=== PATIENT | male | born 1965 | race Caucasian/White ===

== ENCOUNTER 2018-01-21 16:43 | Emergency (ER) | payer OTHER ==
[~2018-01-21] VITALS: Ht 177.8 cm; Wt 108.9 kg
[~2018-01-21 16:43] MED LIST: ALBU90OI INH; BENZ100A PO; CEPH500 PO; CODACE30 PO; DULERA 100 MCG/13 GM INH; GLIP10 PO; HYDR1TAB94 PO; LEVO750 PO; METF500 PO; Metformin HCl1000 MG PO; Nicoderm Cq1 EAC1 TOP; PRED20 PO; PROM25 PO; Prinivil10 MG PO; RISP1 PO; ROBITUSSIN COU118 M1 PO; SIMV10 PO; TAMS.4ER PO; TRAM50 PO
[2018-01-21 17:40] LABS: BASOPHILS ABSOLUTE AUTO 0.03 K/mm3 (0.00-0.23); BASOPHILS PERCENT AUTO 1 % (0-2); EOSINOPHILS ABSOLUTE AUTO 0.08 K/mm3 (0.00-0.68); EOSINOPHILS PERCENT AUTO 1 % (0-6); Hematocrit 41.6 % (37.0-53.0); Hemoglobin 13.5 g/dL (13.5-17.5); IMMATURE GRAN ABSOLUTE AUTO 0.01 K/mm3 (0.00-0.10); IMMATURE GRAN PERCENT AUTO 0 % (0-1); LYMPHOCYTES ABSOLUTE AUTO 2.05 K/mm3 (0.84-5.20); LYMPHOCYTES PERCENT AUTO 36 % (21-46); MONOCYTES ABSOLUTE AUTO 0.57 K/mm3 (0.16-1.47); MONOCYTES PERCENT AUTO 10 % (4-13); Mean Corpuscular HGB 27.9 pg (26.0-34.0); Mean Corpuscular HGB Conc 32.5 g/dL (31.5-36.5); Mean Corpuscular Volume 86 fL (80-100); Mean Platelet Volume 8.6 fL (9.1-12.4); NEUTROPHILS ABSOLUTE AUTO 2.96 K/mm3 (1.96-9.15); NEUTROPHILS PERCENT AUTO 52 % (41-73); Platelet Count 267 K/mm3 (150-400); RDW Coefficient Variation 12.9 % (11.7-14.2); RDW Standard Deviation 40.3 fL (35.1-46.3); Red Blood Cell Count 4.84 M/mm3 (4.30-5.90)
[2018-01-21 17:44] LABS: Base Excess Venous -0.3 mmol/L; Bicarbonate Venous 24.4 mmol/L (24.0-30.0); PCO2 Venous 37.2 mmHg (38-42); PO2 Venous 87.5 mmHg (38-42); pH Blood Venous 7.42 (7.34-7.37)
[2018-01-21 17:59] LABS: Alanine Aminotransfer (ALT/SGP 23 U/L (12-78); Albumin, Blood 3.8 g/dL (3.4-5.0); Albumin/Globulin Ratio 1.1 (0.8-1.8); Alk Phos 101 U/L (50-136); Anion Gap 11 mmol/L (6-16); Aspartate Aminotrans (AST/SGOT 15 U/L (12-37); Bilirubin, Total 0.3 mg/dL (0.1-1.0); Blood Urea Nitrogen 17 mg/dL (8-24); Bun/Creatinine Ratio 19.4 (12.0-20.0); CO2, Blood 23 mmol/L (21-32); Calcium, Blood 9.4 mg/dL (8.5-10.1); Chloride, Blood 104 mmol/L (98-108); Creatinine, Blood 0.88 mg/dL (0.60-1.20); Globulin, Blood 3.5 g/dL (2.2-4.0); Glomerular Filtration Rate >60 (60-); Glucose, Blood 212 mg/dL (70-99); Potassium, Blood 4.4 mmol/L (3.5-5.5); Sodium, Blood 138 mmol/L (136-145); Total Protein, Blood 7.3 g/dL (6.4-8.2); Troponin I <0.015 ng/mL (0.000-0.040)
[2018-01-21 18:03] LABS: Thyroid Stimulating Hormone 0.819 uIU/mL (0.360-4.800)
[2018-01-21] MEDS ORDERED: ALBU90OI INH (18:43)
[2018-01-21] MEDS ORDERED: DULERA 200 MCG/13 GM INH (20:16)
== END 2018-01-21 20:25 | disposition home or self-care (01) ==
LOC: ER 16:43
PROVIDERS: Emergency Medicine
DX: I50.9 Heart failure, unspecified (principal); R06.00 Dyspnea, unspecified; Z72.0 Tobacco use; J40 Bronchitis, not specified as acute or chronic; F20.9 Schizophrenia, unspecified; Z88.5 Allergy status to narcotic agent; Z79.899 Other long term (current) drug therapy; Z79.84 Long term (current) use of oral hypoglycemic drugs; E11.9 Type 2 diabetes mellitus without complications; E78.5 Hyperlipidemia, unspecified; F17.200 Nicotine dependence, unspecified, uncomplicated
CPT/HCPCS: 36415; 71046; 80053; 82803; 83690; 83880; 84443; 84484; 85025; 93005; 93010; 94644; 99284

== ENCOUNTER 2018-02-28 22:05 | Emergency (ER) | payer OTHER ==
[~2018-02-28] VITALS: Ht 177.8 cm; Wt 106.6 kg
[~2018-02-28 22:05] MED LIST changes: +DULERA 200 MCG/13 GM INH
== END 2018-02-28 23:08 | disposition home or self-care (01) ==
LOC: ER 22:05
DX: S01.81XA Laceration without foreign body of other part of head, initial encounter (principal); Z23 Encounter for immunization; E11.9 Type 2 diabetes mellitus without complications; F17.210 Nicotine dependence, cigarettes, uncomplicated; Z88.5 Allergy status to narcotic agent; Z79.899 Other long term (current) drug therapy; Z79.84 Long term (current) use of oral hypoglycemic drugs; Z79.51 Long term (current) use of inhaled steroids; E78.00 Pure hypercholesterolemia, unspecified; Z87.442 Personal history of urinary calculi; W22.8XXA Striking against or struck by other objects, initial encounter
CPT/HCPCS: 12011; 90714; 96372; 99282

== ENCOUNTER 2018-11-30 08:41 | Inpatient (IN) | payer OTHER ==
[~2018-11-30] VITALS: Ht 177.8 cm; Wt 106.6 kg
[~2018-11-30 08:41] MED LIST changes: +ATOR80 PO; +Prednisone20 MG PO; -SIMV10 PO
[2018-11-30] MEDS ORDERED: Amitriptyline100 MG (09:07)
[2018-11-30] MEDS ORDERED: INSULANPEN SC (09:07)
[2018-11-30 09:28] LABS: BASOPHILS ABSOLUTE AUTO 0.04 K/mm3 (0.00-0.23); BASOPHILS PERCENT AUTO 0 % (0-2); EOSINOPHILS ABSOLUTE AUTO 0.06 K/mm3 (0.00-0.68); EOSINOPHILS PERCENT AUTO 1 % (0-6); Hemoglobin 13.7 g/dL (13.5-17.5); IMMATURE GRAN ABSOLUTE AUTO 0.03 K/mm3 (0.00-0.10); IMMATURE GRAN PERCENT AUTO 0 % (0-1); LYMPHOCYTES ABSOLUTE AUTO 2.05 K/mm3 (0.84-5.20); LYMPHOCYTES PERCENT AUTO 19 % (21-46); MONOCYTES ABSOLUTE AUTO 0.74 K/mm3 (0.16-1.47); MONOCYTES PERCENT AUTO 7 % (4-13); Mean Corpuscular HGB 27.9 pg (26.0-34.0); Mean Corpuscular HGB Conc 32.6 g/dL (31.5-36.5); Mean Corpuscular Volume 86 fL (80-100); Mean Platelet Volume 8.5 fL (9.1-12.4); NEUTROPHILS ABSOLUTE AUTO 7.63 K/mm3 (1.96-9.15); NEUTROPHILS PERCENT AUTO 72 % (41-73); Platelet Count 275 K/mm3 (150-400); RDW Coefficient Variation 13.1 % (11.7-14.2); RDW Standard Deviation 40.9 fL (35.1-46.3); Red Blood Cell Count 4.91 M/mm3 (4.30-5.90); White Blood Cell Count 10.55 K/mm3 (4.00-11.30)
[2018-11-30 09:41] LABS: Alanine Aminotransfer (ALT/SGP 43 U/L (12-78); Albumin, Blood 3.5 g/dL (3.4-5.0); Albumin/Globulin Ratio 0.9 (0.8-1.8); Alk Phos 120 U/L (50-136); Anion Gap 8 mmol/L (6-16); Aspartate Aminotrans (AST/SGOT 300 U/L (12-37); Bilirubin, Total 0.5 mg/dL (0.1-1.0); Blood Urea Nitrogen 9 mg/dL (8-24); Bun/Creatinine Ratio 12.5 (12.0-20.0); CO2, Blood 24 mmol/L (21-32); Calcium, Blood 8.9 mg/dL (8.5-10.1); Chloride, Blood 108 mmol/L (98-108); Creatinine, Blood 0.72 mg/dL (0.60-1.20); Globulin, Blood 3.7 g/dL (2.2-4.0); Glomerular Filtration Rate >60 (60-); Glucose, Blood 151 mg/dL (70-99); Potassium, Blood 4.2 mmol/L (3.5-5.5); Sodium, Blood 140 mmol/L (136-145); Total Protein, Blood 7.2 g/dL (6.4-8.2)
[2018-11-30 11:13] LABS: International Normalized Ratio 0.93; Prothrombin Time Results 9.8 Sec (9.7-11.5)
--- NOTE | 2018-11-30 12:18 | NUR ---
Stat echocardiogram performed with Dr. Miller attending.
--- NOTE | 2018-11-30 14:00 | NUR ---
[id number] PT'S CARE COVERED BY MECHE CLEMONS, WHO SETTLED AND ORIENTED PT TO ROOM. 1430 ASSUMED CARE OF PT AT THIS TIME. PT DENIES ANY CHEST PAIN OR ANY OTHER DISCOMFORT AT THIS TIME. PT REPORTS HE IS ANXIOUS RE: NEW NV AND STENTS PLACED.
--- NOTE | 2018-11-30 16:39 | NUR ---
SHIFT SUMMARY: PT IS ALERT AND ORIENTED X3. CONTINUES TO DENY ANY CHEST PAIN OR OTHER DISCOMFORT AT THIS TIME. PT CURRENTLY SITTING UP IN BE EATING A SNACK WITH HIS S.O. AT THE BEDSIDE, WHOM WILL BE STAYING THE NIGHT. MOVES SELF IN BED. EDUCATED ON ACTIVITY RESTRICTIONS. LUNGS ARE CLEAR T/O BUT DIMINISHED IN THE LLL. 02 SATS >90% ON RA. HR REGULAR, SR/ST 90-100 RANGE. NS @100ML/HR. TR BAND IN PLACE TO RT WRIST. SITE IS STABLE, SOFT, NO BLEEDING/OOZING. STARTING TO REMOVE AIR FROM BAND. ABD SOFT/ROUND/NON-TENDER. BT'S ARE ACTIVE X4 QAUDS. PT TO START ON A CARDIAC/ADA DIET FOR DINNER. -FULL CODE STATUS -CBG'S AC/HS
--- NOTE | 2018-11-30 21:39 | NUR ---
ASSUMING CARE RECEIVED PT REPORT FROM MECHE GONZALES. PT IS ALERT AND ORIENTED AT THE TIME OF SHIFT REPORT. PT IS ADMITTED DUE TO NSTEMI AND STENT PLACEMENT. PT HAS RIGHT RADIAL ACCESS. PT HAS TRANSPARENT DRESSING AND ARM BOARD IN PLACE OVER RIGHT RADIAL ACCESS SITE. AT THE TIME OF SHIFT REPORT PT ACCESS SITE IS CDI WITH NO BRUISING SWELLING OR HEMATOMA NOTED. AT THE TIME OF INITIAL ASSESSMENT PT REPORTED INCREASING TENDERNESS TO THE RIGHT RADIAL ACCESS SITE AND SWELLING WAS NOTED. MANUAL PRESSURE WAS HELD OVER SITE FOR APPROX 20 MIN. AFTER MANUAL PRESSURE WAS HELD, SWELLING DECREASED. SOME BRUISING WAS NOTED TO THE AREA. ARM BOARD REPLACED. APPROX 15 MIN AFTER ARM BOARD WAS REPLACED SITE WAS REASSESSED WITH NO INCEREASE OF SWELLING, BRUISING, OR DRAINAGE WAS NOTED. WILL REASSESS SITE FREQUENTLY. PT WAS PLACED ON O2 PER PT REQUEST AT 2L O2 VIA NC. PT SPO2 IS MAINTAINING GREATER THAN 90%. SPO2 PROBE IS PLACED ON RIGHT INDEX FINGER. PT IS RECEIVING NS AT 100ML/HR AT THIS TIME FOR X1 BAG. PT HR IS SINUS IN THE 90-100 RANGE. PT BP IS STABLE AT THIS TIME. ASSUMED CARE OF PT AT THE TIME OF SHIFT REPORT. WILL CONTINUE TO MONITOR PT.
[2018-12-01 05:21] LABS: BASOPHILS ABSOLUTE AUTO 0.03 K/mm3 (0.00-0.23); BASOPHILS PERCENT AUTO 0 % (0-2); EOSINOPHILS ABSOLUTE AUTO 0.04 K/mm3 (0.00-0.68); EOSINOPHILS PERCENT AUTO 1 % (0-6); Hematocrit 36.6 % (37.0-53.0); Hemoglobin 11.7 g/dL (13.5-17.5); IMMATURE GRAN ABSOLUTE AUTO 0.02 K/mm3 (0.00-0.10); IMMATURE GRAN PERCENT AUTO 0 % (0-1); LYMPHOCYTES ABSOLUTE AUTO 2.12 K/mm3 (0.84-5.20); LYMPHOCYTES PERCENT AUTO 26 % (21-46); MONOCYTES ABSOLUTE AUTO 0.75 K/mm3 (0.16-1.47); MONOCYTES PERCENT AUTO 9 % (4-13); Mean Corpuscular HGB 28.3 pg (26.0-34.0); Mean Corpuscular Volume 89 fL (80-100); Mean Platelet Volume 8.7 fL (9.1-12.4); NEUTROPHILS PERCENT AUTO 63 % (41-73); Platelet Count 205 K/mm3 (150-400); RDW Coefficient Variation 13.2 % (11.7-14.2); Red Blood Cell Count 4.13 M/mm3 (4.30-5.90); White Blood Cell Count 8.06 K/mm3 (4.00-11.30)
--- NOTE | 2018-12-01 05:41 | NUR ---
SHIFT SUMMARY NOTE PT HAS REMAINED ALERT AND ORIENTED THROUGH THE NIGHT WHILE AWAKE. PT HAS SLEPT OFF AND ON THROUGH THE NIGHT. ARM BOARD REMAINS IN PLACE OVER RIGHT RADIAL SITE. TRANSPARENT DRESSING REMAINS CDI AT THIS TIME. NO FURTHER SWELLING OR BRUISING NOTED AFTER MANUAL PRESSURE WAS HELD AT THE START OF THE SHIFT. PT HAS BEEN INSTRUCTED TO KEEP RIGHT WRIST IMMOBILE. PT HAS DENIED CHEST PAIN OR PRESSURE THROUGH THE NIGHT. SPO2 PROBE REMAINS ON RIGHT INDEX FINGER. PT IS SALINE LOCKED AT THIS TIME AFTER COMPLETION OF INFUSION OF 1 BAG NS. PT HR HAS MAINTAINED IN THE 90-100'S OVERNIGHT. PT BP HAS MAINTAINED IN THE 90-100'S SYSTOLIC. PT HAS REMAINED AT BEDSIDE THROUGHOUT THE NIGHT. PT HAS BEEN ABLE TO VOID USING URINAL WITHOUT DIFFICULTY. AM EKG PERFORMED PER ORDERS. WILL REPORT OFF TO ONCOMING DAY SHIFT NURSE.
[2018-12-01 05:43] LABS: Alanine Aminotransfer (ALT/SGP 29 U/L (12-78); Albumin/Globulin Ratio 0.9 (0.8-1.8); Alk Phos 101 U/L (50-136); Anion Gap 6 mmol/L (6-16); Aspartate Aminotrans (AST/SGOT 117 U/L (12-37); Bilirubin, Total 0.6 mg/dL (0.1-1.0); Blood Urea Nitrogen 11 mg/dL (8-24); Bun/Creatinine Ratio 15.4 (12.0-20.0); CO2, Blood 25 mmol/L (21-32); Calcium, Blood 8.3 mg/dL (8.5-10.1); Chloride, Blood 107 mmol/L (98-108); Creatinine, Blood 0.72 mg/dL (0.60-1.20); Globulin, Blood 3.2 g/dL (2.2-4.0); Glomerular Filtration Rate >60 (60-); Glucose, Blood 149 mg/dL (70-99); Potassium, Blood 4.3 mmol/L (3.5-5.5); Sodium, Blood 138 mmol/L (136-145); Total Protein, Blood 6.2 g/dL (6.4-8.2)
--- NOTE | 2018-12-01 07:38 | NUR ---
ASSUMED CARE OF PT. PT IS ALERT AND ORIENTED. DENIES CHEST PAIN AT THIS TIME AND NO NUMBNESS. R WRIST ACCESS SITE STABLE SOME BRUISING NOTED BUT NO BLEEDING THERE IS HEMATOMA NOTED BUT STABLE WELL. ARM BOARD TO R WRIST IN PLACE. PT IS ON 2LPM OF O2. HE STATED HE IS HAVING SOME SHORTNESS OF BREATH.
--- NOTE | 2018-12-01 08:15 | NUR ---
DR. HOLLINS CAME BY TO SEE PT. UPDATED HIM OF PT'S STATUS. INFORMED HIM OF PT'S WHEEZING. LASIX ONE TIME DOSE WAS ORDERED.
--- NOTE | 2018-12-01 09:27 | NUR ---
Pt was sitting at the side of the bed. Pt just stood up to use the urinal. Pt stated his breathing has improved after receiving a dose of lasix. No wheezing noted at this time. Pt is slightly restless at this time. Pt denies taking alcohol.
[2018-12-01] MEDS ORDERED: ZIPR80 PO (10:54)
[2018-12-01] MEDS ORDERED: Xalatan2.5 ML BOTHEYES (10:54)
[2018-12-01] MEDS ORDERED: TIMO.5OPSO BOTHEYES (10:55)
--- NOTE | 2018-12-01 13:47 | NUR ---
PT AMBULATED THROUGH THE ICU HALLWAYS. PT DENIES ANY CHEST PAIN OR SHORTNESS OF BREATH. SLIGHT WHEEZING WAS NOTED BEFORE AMBULATION. HE DENIED SHORTNESS OF BREATH THEN. O2 SATURATION ON ROOM AIR @ 94-95%. DR. HERRERA WAS NOTIFIED REGARDING THE WHEEZING. ORDERS RECEIVED.
--- NOTE | 2018-12-01 16:46 | NUR ---
REPORT GIVEN TO [employer] FIRST LINE PRODUCTION SUPERVISOR. PT WILL BE TRANSFERED TO ROOM PCU 15.
--- NOTE | 2018-12-01 17:19 | NUR ---
PT WAS TRANSFERED TO [facility] 15 @ 1457.
--- NOTE | 2018-12-01 17:51 | NUR ---
RECEIVED REPORT FROM MECHE COTTRELL, AND ASSUMED CARE OF PATIENT. HE IS SITTING UP IN BED, AT BEDSIDE. PT HAS FLAT BUT PLEASANT AFFECT. VSS, NO O2 NEEDED AT THIS TIME, O2 SAT >92%. RADIAL ACCESS SITE IS STABLE AT THIS TIME. ARM BOARD IN PLACE. WILL CONTINUE TO MONITOR AND GIVE REPORT TO WAYLON MCGREGOR.
--- NOTE | 2018-12-01 18:27 | NUR ---
PT RESTING AT THIS TIME, HE IS COMFORTABLE AND RELAXING WATCHING BASKETBALL. PT REFUSED TO USE THE SCD'S AT THIS TIME AND STATED,"I'M MOVING AROUND IN HERE." NO OXYGEN REQUIREMENTS, VSS. WILL CONTINUE TO MONITOR AND GIVE REPORT TO WAYLON RN.
--- NOTE | 2018-12-02 02:27 | NUR ---
ASSUMED CARE AT 1900/ SLEEPING SOUNDLY AND FAMILY AT BEDSIDE . WHEN AROUSED VERY FLAT AFFECT. VERY AWARE OF MEDS FROM HOME AND USE OF EACH. REVIEWED NEW MEDS AND AFFECTS. EXPRESSED UNDERSTANDING WITH S.O.RT WRIST NO HEMATOMA AND BRUISING AND SORENESS SAME PER REPORT FROM LAST SHIFT. INDEPENDENT IN ROOM. HS SNACK AND NO COVERAGE FOR 269 BS. DENIES PAIN OR SOB . SR/ST.HIGHEST 110.
--- NOTE | 2018-12-02 06:11 | NUR ---
SHIFT SUMMARY.NO CANGE IN ABOVE REVIEW. SLEEPS WELL ALL NOC. LOWER BP WNL MAP..ASYMPTOMATIC.WHEN OOB..SR WHEN ASLEEP/ CATH SITE SAME.WNL ARM BOARD ON AT ALL TIMES AND INSTRUCTED TYPE OF MOBILITY
[2018-12-02] MEDS ORDERED: Aspirin EC81 MG PO (13:51)
[2018-12-02] MEDS ORDERED: CLOP75 PO (13:52)
[2018-12-02] MEDS ORDERED: EPLE25 PO (13:56)
[2018-12-02] MEDS ORDERED: METO50ER PO (14:04)
--- NOTE | 2018-12-02 15:30 | NUR ---
PT HAD A GOOD MORNING AND EARLY AFTERNOON. PT STATES HE FEELS GREAT THIS MORNING. HELD A COUPLE OF MEDS, SEE MAR FOR MORE DETAIL. WENT OVER MEDICATION ORDERS FOR PATIENT ON DISCHARGE AND WENT OVER CONTRACT TO TAKE THINNERS, AND HIS INSTRUCTIONS FOR RADIAL RECOVERY SITE. PROVIDED EDUCATION ON NEW MEDICATIONS AND PROVIDED AN ADDITIONAL ARMBAND TO REMIND PATIENT TO KEEP ARM IMMOBILE DURING RECOVERY TIME. PT AND EXPRESSED UNDERSTANDING OF DISCHARGE AND MEDICATION INSTRUCTIONS WELL FOLLOW UP APPOINTMENTS.
== END 2018-12-02 14:40 | disposition home or self-care (01) | DRG 247 ==
LOC: ER 08:41 → ICUE 10:43 → ICUW 10:43 → PCU 10:43 → ICUE 14:00 → PCU 12-01 17:10
PROVIDERS: Emergency Medicine; Pharmacist; ADMIT Internal Medicine
PROC: 027136Z Dilation of Coronary Artery, Two Arteries with Three Drug-eluting Intraluminal Devices, Percutaneous Approach (ICD-10-PCS; principal; 2018-11-30)
PROC: B2111ZZ Fluoroscopy of Multiple Coronary Arteries using Low Osmolar Contrast (ICD-10-PCS; 2018-11-30)
DX: I21.4 Non-ST elevation (NSTEMI) myocardial infarction (principal); E78.00 Pure hypercholesterolemia, unspecified; F20.9 Schizophrenia, unspecified; F17.210 Nicotine dependence, cigarettes, uncomplicated; Z79.4 Long term (current) use of insulin; E78.5 Hyperlipidemia, unspecified; I25.10 Atherosclerotic heart disease of native coronary artery without angina pectoris; E11.42 Type 2 diabetes mellitus with diabetic polyneuropathy; E87.70 Fluid overload, unspecified; J44.9 Chronic obstructive pulmonary disease, unspecified
CPT/HCPCS: 36415; 71046; 80053; 82947; 83690; 83880; 84484; 85025; 85347; 85610; 85730; 93005; 93010; 93306; 93454; 94640; 96361; 96374; 96375; 99152; 99153; 99285-25; C1725; C1769; C1874; C1887; C1894; C9600; C9601; J1170; J1644; J1940; J2250; J2405; J3010; J7030; Q9967

== ENCOUNTER 2019-10-12 22:39 | Emergency (ER) | payer OTHER ==
[~2019-10-12] VITALS: Ht 177.8 cm; Wt 104.3 kg
[~2019-10-12 22:39] MED LIST changes: +Amitriptyline100 MG; +Aspirin EC81 MG PO; +CLOP75 PO; +EPLE25 PO; +INSULANPEN SC; +METO50ER PO; +TIMO.5OPSO BOTHEYES; +Xalatan2.5 ML BOTHEYES; +ZIPR80 PO
== END 2019-10-12 23:35 | disposition home or self-care (01) ==
LOC: ER 22:39
DX: S01.512A Laceration without foreign body of oral cavity, initial encounter (principal); E11.9 Type 2 diabetes mellitus without complications; E78.00 Pure hypercholesterolemia, unspecified; F17.200 Nicotine dependence, unspecified, uncomplicated; Z79.4 Long term (current) use of insulin; Z79.899 Other long term (current) drug therapy; Z88.5 Allergy status to narcotic agent; Z79.82 Long term (current) use of aspirin; W50.3XXA Accidental bite by another person, initial encounter
CPT/HCPCS: 99282

== ENCOUNTER → 2020-01-26 | Outpatient (CLI) | payer OTHER | END | disposition home or self-care (01) | LOC: LAB 16:19 → LAB SHORT 16:19 | DX: L73.9 Follicular disorder, unspecified (principal) | CPT/HCPCS: 87070; 87077; 87147; 87186; 87205 ==

== ENCOUNTER 2020-07-08 21:54 | Emergency (ER) | payer OTHER ==
[~2020-07-08] VITALS: Ht 170.2 cm; Wt 106.6 kg
[~2020-07-08 21:54] MED LIST changes: -ATOR80 PO; -Amitriptyline100 MG; -CLOP75 PO; -Metformin HCl1000 MG PO; -Prinivil10 MG PO; -TIMO.5OPSO BOTHEYES; -Xalatan2.5 ML BOTHEYES
[2020-07-08 22:28] LABS: BASOPHILS ABSOLUTE AUTO 0.02 K/mm3 (0.00-0.23); BASOPHILS PERCENT AUTO 0 % (0-2); EOSINOPHILS ABSOLUTE AUTO 0.09 K/mm3 (0.00-0.68); EOSINOPHILS PERCENT AUTO 2 % (0-6); Hematocrit 35.3 % (37.0-53.0); Hemoglobin 11.5 g/dL (13.5-17.5); IMMATURE GRAN ABSOLUTE AUTO 0.02 K/mm3 (0.00-0.10); IMMATURE GRAN PERCENT AUTO 0 % (0-1); LYMPHOCYTES ABSOLUTE AUTO 2.02 K/mm3 (0.84-5.20); LYMPHOCYTES PERCENT AUTO 39 % (21-46); MONOCYTES ABSOLUTE AUTO 0.44 K/mm3 (0.16-1.47); MONOCYTES PERCENT AUTO 9 % (4-13); Mean Corpuscular HGB 27.5 pg (26.0-34.0); Mean Corpuscular HGB Conc 32.6 g/dL (31.5-36.5); Mean Corpuscular Volume 84 fL (80-100); NEUTROPHILS ABSOLUTE AUTO 2.57 K/mm3 (1.96-9.15); NEUTROPHILS PERCENT AUTO 50 % (41-73); Platelet Count 273 K/mm3 (150-400); RDW Coefficient Variation 12.9 % (11.7-14.2); Red Blood Cell Count 4.18 M/mm3 (4.30-5.90); White Blood Cell Count 5.16 K/mm3 (4.00-11.30)
[2020-07-08 22:34] LABS: Source, Urine Clean Catch
[2020-07-08 22:39] LABS: Bilirubin, Urine Neg (Neg); Blood, Urine Neg (Neg); Glucose Qualitative, Urine 4+ (Neg); Ketones, Urine 1+ (Neg); Leukocyte Esterase, Urine Neg (Neg); Nitrite, Urine Neg (Neg); Protein, Urine 1+ (Neg); Specific Gravity, Urine 1.015 (1.003-1.022); Urobilinogen, Urine NORM (Normal)
[2020-07-08 22:40] LABS: Appearance, Urine Clear (Clear); Color, Urine Yellow (P-Yellow)
[2020-07-08 22:49] LABS: Alanine Aminotransfer (ALT/SGP 77 U/L (12-78); Albumin, Blood 3.4 g/dL (3.4-5.0); Albumin/Globulin Ratio 0.9 (0.8-1.8); Alk Phos 190 U/L (50-136); Anion Gap 6 mmol/L (6-16); Aspartate Aminotrans (AST/SGOT 35 U/L (12-37); Bilirubin, Total 0.2 mg/dL (0.1-1.0); Blood Urea Nitrogen 13 mg/dL (8-24); Bun/Creatinine Ratio 14.9 (12.0-20.0); CO2, Blood 28 mmol/L (21-32); Calcium, Blood 8.9 mg/dL (8.5-10.1); Chloride, Blood 111 mmol/L (98-108); Creatinine, Blood 0.87 mg/dL (0.60-1.20); Globulin, Blood 3.8 g/dL (2.2-4.0); Glomerular Filtration Rate >60 (60-); Glucose, Blood 210 mg/dL (70-99); Potassium, Blood 4.2 mmol/L (3.5-5.5); Sodium, Blood 145 mmol/L (136-145); Total Protein, Blood 7.2 g/dL (6.4-8.2); Troponin I <0.015 ng/mL (0.000-0.040)
[2020-07-09] MEDS ORDERED: Zithromax250 MG PO (00:09)
[2020-07-11] MEDS ORDERED: BASAGLAR K100 UNIT/6 SC (17:57)
[2020-07-11] MEDS ORDERED: Amitriptyline100 MG PO (17:57)
[2020-07-11] MEDS ORDERED: ATOR80 PO (17:58)
[2020-07-11] MEDS ORDERED: CLOP75 PO (17:58)
[2020-07-11] MEDS ORDERED: GLUCOPHAGE1000 M1 PO (17:59)
[2020-07-11] MEDS ORDERED: Prinivil10 MG PO (17:59)
[2020-07-11] MEDS ORDERED: TIMO.5OPSO BOTHEYES (18:00)
[2020-07-11] MEDS ORDERED: Xalatan2.5 ML BOTHEYES (18:00)
[2020-07-12] MEDS ORDERED: METO25 PO (16:40)
[2020-07-12] MEDS ORDERED: FURO20 PO (16:41)
== END 2020-07-09 00:22 | disposition home or self-care (01) ==
LOC: ER 21:54
PROVIDERS: Physician Assistant
DX: R06.02 Shortness of breath (principal); E11.9 Type 2 diabetes mellitus without complications; E78.00 Pure hypercholesterolemia, unspecified; I25.2 Old myocardial infarction; F17.200 Nicotine dependence, unspecified, uncomplicated; Z86.19 Personal history of other infectious and parasitic diseases; Z79.899 Other long term (current) drug therapy; Z79.02 Long term (current) use of antithrombotics/antiplatelets; Z79.82 Long term (current) use of aspirin; Z88.5 Allergy status to narcotic agent; Z79.4 Long term (current) use of insulin; Z87.442 Personal history of urinary calculi
CPT/HCPCS: 36415; 71045; 80053; 82947; 83880; 84484; 85025; 85379; 93005; 93010; 96360; 99285-25; J7030

== ENCOUNTER 2020-08-12 18:13 | Emergency (ER) | payer OTHER ==
[~2020-08-12] VITALS: Ht 177.8 cm; Wt 108.9 kg
[~2020-08-12 18:13] MED LIST changes: +ATOR80 PO; +Amitriptyline100 MG PO; +BASAGLAR K100 UNIT/6 SC; +CLOP75 PO; +FURO20 PO; +GLUCOPHAGE1000 M1 PO; +METO25 PO; +Prinivil10 MG PO; +TIMO.5OPSO BOTHEYES; +Xalatan2.5 ML BOTHEYES; +Zithromax250 MG PO
[2020-08-12 18:45] LABS: BASOPHILS ABSOLUTE AUTO 0.04 K/mm3 (0.00-0.23); BASOPHILS PERCENT AUTO 1 % (0-2); EOSINOPHILS ABSOLUTE AUTO 0.08 K/mm3 (0.00-0.68); EOSINOPHILS PERCENT AUTO 1 % (0-6); Hematocrit 35.6 % (37.0-53.0); Hemoglobin 11.4 g/dL (13.5-17.5); IMMATURE GRAN ABSOLUTE AUTO 0.01 K/mm3 (0.00-0.10); IMMATURE GRAN PERCENT AUTO 0 % (0-1); LYMPHOCYTES PERCENT AUTO 32 % (21-46); MONOCYTES ABSOLUTE AUTO 0.55 K/mm3 (0.16-1.47); MONOCYTES PERCENT AUTO 10 % (4-13); Mean Corpuscular HGB 27.2 pg (26.0-34.0); Mean Corpuscular Volume 85 fL (80-100); Mean Platelet Volume 8.6 fL (9.1-12.4); NEUTROPHILS ABSOLUTE AUTO 3.19 K/mm3 (1.96-9.15); NEUTROPHILS PERCENT AUTO 56 % (41-73); Platelet Count 266 K/mm3 (150-400); RDW Coefficient Variation 13.7 % (11.7-14.2); RDW Standard Deviation 42.3 fL (35.1-46.3); Red Blood Cell Count 4.19 M/mm3 (4.30-5.90); White Blood Cell Count 5.67 K/mm3 (4.00-11.30)
[2020-08-12 19:09] LABS: Alanine Aminotransfer (ALT/SGP 24 U/L (12-78); Albumin, Blood 3.5 g/dL (3.4-5.0); Alk Phos 131 U/L (50-136); Anion Gap 10 mmol/L (6-16); Aspartate Aminotrans (AST/SGOT 14 U/L (12-37); Bilirubin, Total 0.4 mg/dL (0.1-1.0); Blood Urea Nitrogen 14 mg/dL (8-24); Bun/Creatinine Ratio 16.8 (12.0-20.0); CO2, Blood 22 mmol/L (21-32); Calcium, Blood 8.9 mg/dL (8.5-10.1); Chloride, Blood 108 mmol/L (98-108); Creatinine, Blood 0.83 mg/dL (0.60-1.20); Globulin, Blood 3.5 g/dL (2.2-4.0); Glomerular Filtration Rate >60 (60-); Glucose, Blood 236 mg/dL (70-99); Potassium, Blood 4.3 mmol/L (3.5-5.5); Sodium, Blood 140 mmol/L (136-145); Troponin I <0.015 ng/mL (0.000-0.040)
[2020-08-12 23:31] LABS: Influenza A, PCR Negative (NEGATIVE); Influenza B, PCR Negative (NEGATIVE); Resp Syncytial Virus, PCR Negative (NEGATIVE); SARS-Cov-2 (COVID-19) PCR, MMC Negative (NEGATIVE)
== END 2020-08-12 23:24 | disposition home or self-care (01) ==
LOC: ER 18:13
PROVIDERS: Emergency Medicine; Physician Assistant
DX: R09.1 Pleurisy (principal); E11.9 Type 2 diabetes mellitus without complications; E78.00 Pure hypercholesterolemia, unspecified; I25.2 Old myocardial infarction; Z88.5 Allergy status to narcotic agent; Z79.4 Long term (current) use of insulin; Z95.5 Presence of coronary angioplasty implant and graft; Z87.891 Personal history of nicotine dependence; Z20.822 Contact with and (suspected) exposure to COVID-19
CPT/HCPCS: 0241U; 36415; 71046; 80053; 83690; 83880; 84484; 85025; 85379; 93005; 93010; 99285-25

== ENCOUNTER 2021-01-28 16:57 | Emergency (ER) | payer OTHER ==
[~2021-01-28] VITALS: Ht 177.8 cm; Wt 111.1 kg
[~2021-01-28 16:57] MED LIST changes: +SULTRIDS PO
[2021-01-28 17:22] LABS: BASOPHILS ABSOLUTE AUTO 0.04 K/mm3 (0.00-0.23); BASOPHILS PERCENT AUTO 1 % (0-2); EOSINOPHILS PERCENT AUTO 2 % (0-6); Hematocrit 42.6 % (37.0-53.0); Hemoglobin 13.8 g/dL (13.5-17.5); IMMATURE GRAN ABSOLUTE AUTO 0.02 K/mm3 (0.00-0.10); IMMATURE GRAN PERCENT AUTO 0 % (0-1); LYMPHOCYTES ABSOLUTE AUTO 2.36 K/mm3 (0.84-5.20); LYMPHOCYTES PERCENT AUTO 36 % (21-46); MONOCYTES ABSOLUTE AUTO 0.52 K/mm3 (0.16-1.47); MONOCYTES PERCENT AUTO 8 % (4-13); Mean Corpuscular HGB 26.7 pg (26.0-34.0); Mean Corpuscular HGB Conc 32.4 g/dL (31.5-36.5); Mean Corpuscular Volume 83 fL (80-100); Mean Platelet Volume 8.6 fL (9.1-12.4); NEUTROPHILS ABSOLUTE AUTO 3.53 K/mm3 (1.96-9.15); NEUTROPHILS PERCENT AUTO 54 % (41-73); Platelet Count 331 K/mm3 (150-400); RDW Standard Deviation 42.4 fL (35.1-46.3); Red Blood Cell Count 5.16 M/mm3 (4.30-5.90); White Blood Cell Count 6.57 K/mm3 (4.00-11.30)
[2021-01-28 17:44] LABS: Alanine Aminotransfer (ALT/SGP 29 U/L (12-78); Albumin, Blood 3.8 g/dL (3.4-5.0); Albumin/Globulin Ratio 0.9 (0.8-1.8); Alk Phos 180 U/L (50-136); Anion Gap 7 mmol/L (6-16); Aspartate Aminotrans (AST/SGOT 12 U/L (12-37); Bilirubin, Total 0.4 mg/dL (0.1-1.0); Blood Urea Nitrogen 32 mg/dL (8-24); Bun/Creatinine Ratio 22.9 (12.0-20.0); CO2, Blood 21 mmol/L (21-32); Calcium, Blood 9.7 mg/dL (8.5-10.1); Chloride, Blood 104 mmol/L (98-108); Globulin, Blood 4.1 g/dL (2.2-4.0); Glomerular Filtration Rate 56 (60-); Glucose, Blood 336 mg/dL (70-99); Potassium, Blood 5.4 mmol/L (3.5-5.5); Sodium, Blood 132 mmol/L (136-145); Total Protein, Blood 7.9 g/dL (6.4-8.2); Troponin I <0.015 ng/mL (0.000-0.040)
== END 2021-01-28 20:16 | disposition home or self-care (01) ==
LOC: ER 16:57
PROVIDERS: Physician Assistant
DX: I25.10 Atherosclerotic heart disease of native coronary artery without angina pectoris (principal); Z79.02 Long term (current) use of antithrombotics/antiplatelets; Z79.4 Long term (current) use of insulin; Z79.899 Other long term (current) drug therapy
CPT/HCPCS: 36415; 71046; 80053; 84484; 85025; 85379; 93005; 93010; 99285-25

== ENCOUNTER 2021-12-03 | Emergency (ER) | payer OTHER ==
[~2021-12-03] VITALS: Ht 177.8 cm; Wt 117.9 kg
[2021-12-03 02:23] LABS: BASOPHILS ABSOLUTE AUTO 0.03 K/mm3 (0.00-0.23); BASOPHILS PERCENT AUTO 1 % (0-2); EOSINOPHILS ABSOLUTE AUTO 0.14 K/mm3 (0.00-0.68); EOSINOPHILS PERCENT AUTO 3 % (0-6); Hematocrit 38.9 % (37.0-53.0); Hemoglobin 12.7 g/dL (13.5-17.5); IMMATURE GRAN ABSOLUTE AUTO 0.02 K/mm3 (0.00-0.10); IMMATURE GRAN PERCENT AUTO 0 % (0-1); LYMPHOCYTES ABSOLUTE AUTO 1.92 K/mm3 (0.84-5.20); LYMPHOCYTES PERCENT AUTO 36 % (21-46); MONOCYTES ABSOLUTE AUTO 0.52 K/mm3 (0.16-1.47); MONOCYTES PERCENT AUTO 10 % (4-13); Mean Corpuscular HGB 27.7 pg (26.0-34.0); Mean Corpuscular HGB Conc 32.6 g/dL (31.5-36.5); Mean Corpuscular Volume 85 fL (80-100); Mean Platelet Volume 8.6 fL (9.1-12.4); NEUTROPHILS ABSOLUTE AUTO 2.76 K/mm3 (1.96-9.15); NEUTROPHILS PERCENT AUTO 51 % (41-73); Platelet Count 219 K/mm3 (150-400); RDW Coefficient Variation 13.3 % (11.7-14.2); RDW Standard Deviation 41.3 fL (35.1-46.3); Red Blood Cell Count 4.58 M/mm3 (4.30-5.90); White Blood Cell Count 5.39 K/mm3 (4.00-11.30)
[2021-12-03 02:40] LABS: Albumin, Blood 3.4 g/dL (3.4-5.0); Bilirubin, Total 0.2 mg/dL (0.1-1.0); Bun/Creatinine Ratio 19.5 (12.0-20.0); Calcium, Blood 8.7 mg/dL (8.5-10.1); Creatinine, Blood 1.69 mg/dL (0.60-1.20); Globulin, Blood 3.3 g/dL (2.2-4.0); Potassium, Blood 4.4 mmol/L (3.5-5.5); Total Protein, Blood 6.7 g/dL (6.4-8.2)
[2021-12-03 03:50] LABS: Source, Urine Clean Catch
[2021-12-03 03:51] LABS: Bilirubin, Urine Neg (Neg); Blood, Urine Neg (Neg); Glucose Qualitative, Urine 3+ (Neg); Ketones, Urine 1+ (Neg); Leukocyte Esterase, Urine Neg (Neg); Nitrite, Urine Neg (Neg); Protein, Urine 1+ (Neg); Urobilinogen, Urine NORM (Normal)
[2021-12-03 03:55] LABS: Appearance, Urine Clear (Clear); Color, Urine Yellow (P-Yellow)
== END 2021-12-03 04:17 | disposition home or self-care (01) ==
LOC: ER
PROVIDERS: Student in an Organized Health Care Education/Training Program
DX: J11.1 Influenza due to unidentified influenza virus with other respiratory manifestations (principal); N17.9 Acute kidney failure, unspecified; E11.9 Type 2 diabetes mellitus without complications; E78.5 Hyperlipidemia, unspecified; I25.2 Old myocardial infarction; Z79.4 Long term (current) use of insulin; Z79.899 Other long term (current) drug therapy
CPT/HCPCS: 36415; 71046; 80053; 85025; 93005; 93010; 99284-25; J7030

== ENCOUNTER 2022-06-16 19:35 | Emergency (ER) | payer OTHER ==
[~2022-06-16] VITALS: Ht 177.8 cm; Wt 117.9 kg
== END 2022-06-16 21:26 | disposition home or self-care (01) ==
LOC: ER 19:35
DX: M77.11 Lateral epicondylitis, right elbow (principal); F17.290 Nicotine dependence, other tobacco product, uncomplicated; Z88.5 Allergy status to narcotic agent; Z79.899 Other long term (current) drug therapy; Z79.4 Long term (current) use of insulin
CPT/HCPCS: 73080; J1885

== ENCOUNTER 2022-08-24 17:34 | Inpatient (IN) | payer OTHER ==
[~2022-08-24] VITALS: Ht 177.8 cm; Wt 125.3 kg
[~2022-08-24 17:34] MED LIST changes: +AMITRIPTYLINE100 M2 PO; -ATOR80 PO; -Amitriptyline100 MG PO; +LATA.005SO BOTHEYES; +LIPITOR80 MG PO; -Xalatan2.5 ML BOTHEYES
[2022-08-24 18:03] LABS: BASOPHILS ABSOLUTE AUTO 0.04 K/mm3 (0.00-0.23); BASOPHILS PERCENT AUTO 1 % (0-2); EOSINOPHILS ABSOLUTE AUTO 0.15 K/mm3 (0.00-0.68); EOSINOPHILS PERCENT AUTO 2 % (0-6); Hematocrit 40.9 % (37.0-53.0); Hemoglobin 13.2 g/dL (13.5-17.5); IMMATURE GRAN ABSOLUTE AUTO 0.02 K/mm3 (0.00-0.10); IMMATURE GRAN PERCENT AUTO 0 % (0-1); LYMPHOCYTES ABSOLUTE AUTO 2.35 K/mm3 (0.84-5.20); LYMPHOCYTES PERCENT AUTO 33 % (21-46); MONOCYTES ABSOLUTE AUTO 0.69 K/mm3 (0.16-1.47); MONOCYTES PERCENT AUTO 10 % (4-13); Mean Corpuscular HGB 27.7 pg (26.0-34.0); Mean Corpuscular HGB Conc 32.3 g/dL (31.5-36.5); Mean Corpuscular Volume 86 fL (80-100); Mean Platelet Volume 8.2 fL (9.1-12.4); NEUTROPHILS ABSOLUTE AUTO 3.89 K/mm3 (1.96-9.15); NEUTROPHILS PERCENT AUTO 54 % (41-73); Platelet Count 270 K/mm3 (150-400); RDW Coefficient Variation 14.3 % (11.7-14.2); RDW Standard Deviation 44.6 fL (35.1-46.3); Red Blood Cell Count 4.76 M/mm3 (4.30-5.90); White Blood Cell Count 7.14 K/mm3 (4.00-11.30)
[2022-08-24] MEDS ORDERED: Aspirin325 MG PO (18:05)
[2022-08-24 18:23] LABS: Albumin, Blood 3.8 g/dL (3.4-5.0); Albumin/Globulin Ratio 1.1 (0.8-1.8); Bilirubin, Total 0.2 mg/dL (0.1-1.0); Creatinine, Blood 1.09 mg/dL (0.60-1.20); Globulin, Blood 3.4 g/dL (2.2-4.0); Potassium, Blood 4.6 mmol/L (3.5-5.5); Total Protein, Blood 7.2 g/dL (6.4-8.2)
[2022-08-25 03:45] LABS: CHOL/HDL RATIO 4.8; Cholesterol 130 mg/dL (50-200); HDL Cholesterol 27 mg/dL (>39); LDL/HDL RATIO 2.3; Low Density Lipoprotein Chol 62 mg/dL (0-110); Triglycerides 205 mg/dL (30-160); Very Low Density Lipoprot Chol 41 mg/dL (6-32)
--- NOTE | 2022-08-25 05:46 | NUR ---
CALLED DR FARR TO UPDATE ON BLOOD GLUCOSE RESULTS. AWAITING CALLBACK
--- NOTE | 2022-08-25 06:04 | NUR ---
PATIENT ALERT AND ORIENTED, NPO FOR STRESS TEST WITH DR FULLER TODAY, ROOM AIR, SR ON TELE, INDEPENDENT, 20 LAC SALINE LOCKED. PATIENT VERY PLEASANT AND COOPERATIVE. CHECKED 0600 BGM AND FIRST READING WAS 66, RECHECED AND 2ND READING 64. PATIENT HAS NOT EATEN/DRANK IN OVER [address] FARR AND ORDERS GIVEN FOR HYPOGLYCEMIA PROTOCOL AND RECHECK BGM Q1 HOUR X2 AFTER D50 ADMINISTRATION
--- NOTE | 2022-08-25 13:05 | NUR ---
RECEIVED VOCERA CALL FROM [employer] AROUND 1200'S. PER INDOOR PLANT TECHNICIAN AT AROUND 0651 PATIENT HAD EPISODE OF 2ND DEGREE TYPE [address] HERRERA TO REPORT REGARDING THIS EVENT. PER DR. HERRERA TO CONTINUE MONITOR PATIENT CONDITION. PATIENT ON TELE, SR AT 83 BPM c PVC PER INDOOR PLANT TECHNICIAN. PATIENT DENIES CP/CHEST PRESSURE.
--- NOTE | 2022-08-25 17:21 | NUR ---
SHIFT SUMMARY: PATIENT A&OX4. PLEASANT AND COOPERATIVE c CARE. USES CALL LIGHT APPROPRIATELY AND ABLE TO ADVOCATE FOR HIS NEEDS. PATIENT ON TELE, SR IN THE MID 80'S BPM c PVC T/O SHIFT PER MANAGER [employer] MANTILLA. DENIES CP/CHEST PRESSURE, N/V. PATIENT ON RA c SPO2 RANGES 95-96% T/O SHIFT. DENIES SOB. AMBULATES TO BATHROOM AND BACK IN BED INDEPENDENTLY WITHOUT USING ANY ASSISTIVE DEVICES. PATIENT BS RANGES 80-327 THIS SHIFT. RECEIVED INSULIN COVERAGE PER EMAR SLIDING SCALE. FIRST PART OF STRESS WAS DONE TODAY, SECOND PART WILL BE TOMORROW. PATIENT WILL BE NPO AT [place]. ECHO WAS NOT DONE TODAY. VITAL SIGNS REVIEWED. IV TO L AC SALINE LOCKED. CALL LIGHT IN REACH.
--- NOTE | 2022-08-26 05:09 | NUR ---
PATIENT ALERT AND ORIENTED, ROOM AIR, IV SALINE LOCKED, INDEPENDENT. PT HAS INSOMNIA AND DOES NOT SLEEP DURING NIGHT. NO EVENTS OVER NIGHT
--- NOTE | 2022-08-26 16:48 | NUR ---
SHIFT SUMMARY: PATIENT A&OX4. CALM, PLEASANT AND COOPERATIVE c CARE. USES CALL LIGHT APPROPRIATELY AND ABLE TO ADVOCATE FOR HIS NEEDS. PATIENT DENIES CP/CHEST PRESSURE THIS SHIFT. ON TELE, SR IN MID 80'S BPM PER COMMERCIAL KITCHEN SERVICE TECHNICIAN SHANELLE. SECOND PART OF STRESS TEST AND ECHO WAS DONE TODAY. DR. FULLER SAW PATIENT TODAY, PLAN TO HAVE PATIENT CORONARY ANGIOGRAPHY TOMORROW. NS WILL BE STARTED AT 2100 125 MLS/HR. PATIENT WILL BE ON CL AT [place] UNTIL 0600, THEN NPO EXCEPT MEDS. PATIENT BS THIS SHIFT RANGES [phone]. RECEIVED INSULIN PER MS SCALE COVERAGE. VITAL SIGNS REVIEWED. PATIENT INDEPENDENT IN ROOM. CALL LIGHT IN REACH.
--- NOTE | 2022-08-27 06:36 | NUR ---
PATIENT RESTING IN BED
--- NOTE | 2022-08-27 09:09 | NUR ---
CALLED DR FARR. RE CBG. [place] GIVE 1/2 LONG HOLD SHORT. PRIOR TO ANGIO. NPO
--- NOTE | 2022-08-27 09:11 | NUR ---
CALLED REPORT TO [facility] PCU, FOR ANGIOGRAM TRANSFER TO PCU
--- NOTE | 2022-08-27 09:12 | NUR ---
PT A/O X4, PLEASANT COOP/ AT BEDSIDE. PLEASANT. PT DENIES C/PN, STATES HAD SOME TIGHTNESS OCC LAST NITE. NONE AT THIS TIME . H/R REG, NO MURMUR NOTED. PER TELE, NSR AT 80'S. NO EDEMA NOTED. LUNGS CLEAR, RESP EASY, UNLABORED. ON R/A. BT X4 LAST BM YEST PER PT. VOIDS IND IN RM. BED IN LOW POSITION CALL LITE IN REACH, CALLS APPROP
[2022-08-27] MEDS ORDERED: Aspir 8181 MG PO (12:17)
[2022-08-27] MEDS ORDERED: OMEGA-3 FISH O1 EAC6 PO (12:30)
--- NOTE | 2022-08-27 18:07 | NUR ---
Shift Summary Pt alert, oriented X4; calm and cooperative with care. Pt resting in bed, up with sba to bathroom. Right radial site with TR band in place, no bruising or hematoma noted, slight ooze noted midway, reinflated and restarted, no further bleeding noted, tegaderm in place prior to discharge. Pt Tele sinus 60-80's bp stable, pt denies chest pain/pressure. Spo2 >90% on ra, breathing even and unlabored. No other acute changes noted. Educated pt and spouse on discharge instructions, follow up appointment and prescriptions. [facility] request. Educated pt and spouse on wound care, what to do if it starts bleeing, becomes infected and not to drive for 24 hours post procedure. Pt left room at approx 1651.
== END 2022-08-27 16:51 | disposition home or self-care (01) | DRG 287 ==
LOC: ER 17:34 → MEDS 08-25 00:14 → ER 08-25 00:14 → MEDS 08-25 00:14 → PCU 08-26 15:18 → MEDS 08-26 16:02 → PCU 08-27 08:53
PROVIDERS: Physician Assistant; ADMIT Internal Medicine
PROC: 4A023N7 Measurement of Cardiac Sampling and Pressure, Left Heart, Percutaneous Approach (ICD-10-PCS; principal; 2022-08-27)
PROC: B211YZZ Fluoroscopy of Multiple Coronary Arteries using Other Contrast (ICD-10-PCS; 2022-08-27)
PROC: B24BZZ3 Ultrasonography of Heart with Aorta, Intravascular (ICD-10-PCS; 2022-08-27)
DX: R07.89 Other chest pain (principal); E66.01 Morbid (severe) obesity due to excess calories; E11.9 Type 2 diabetes mellitus without complications; I10 Essential (primary) hypertension; E78.5 Hyperlipidemia, unspecified; G47.33 Obstructive sleep apnea (adult) (pediatric); F25.9 Schizoaffective disorder, unspecified; I25.10 Atherosclerotic heart disease of native coronary artery without angina pectoris; Z68.37 Body mass index [BMI] 37.0-37.9, adult; Z85.528 Personal history of other malignant neoplasm of kidney; Z87.442 Personal history of urinary calculi; I25.2 Old myocardial infarction; Z90.5 Acquired absence of kidney; Z90.89 Acquired absence of other organs; Z95.5 Presence of coronary angioplasty implant and graft; Z88.6 Allergy status to analgesic agent; Z79.4 Long term (current) use of insulin; Z79.82 Long term (current) use of aspirin; Z79.899 Other long term (current) drug therapy
CPT/HCPCS: 36415; 71045; 76937; 78452; 80053; 80061; 82947; 83036; 83718; 83880; 84484; 85018; 85025; 93005; 93010; 93017; 93458; 99152; 99153; 99285-25; A9270; A9500; C1769; C1887; C1894; C8929; G0378; J0280; J1644; J1815; J2250; J2785; J3010; J7030; J7040; J7050; J7799; Q9957; Q9967

== ENCOUNTER 2022-10-15 18:14 | Emergency (ER) | payer OTHER ==
[~2022-10-15] VITALS: Ht 177.8 cm; Wt 117.9 kg
[~2022-10-15 18:14] MED LIST changes: +Aspir 8181 MG PO; +Aspirin325 MG PO; +OMEGA-3 FISH O1 EAC6 PO
== END 2022-10-15 20:00 | disposition home or self-care (01) ==
LOC: ER 18:14
DX: L02.212 Cutaneous abscess of back [any part, except buttock and flank] (principal); E11.9 Type 2 diabetes mellitus without complications; I25.2 Old myocardial infarction; Z88.5 Allergy status to narcotic agent; Z88.8 Allergy status to other drugs, medicaments and biological substances; Z79.899 Other long term (current) drug therapy; Z79.82 Long term (current) use of aspirin; Z87.891 Personal history of nicotine dependence
CPT/HCPCS: 10061; 99282-25

== ENCOUNTER 2023-07-03 07:25 | Emergency (ER) | payer OTHER ==
[~2023-07-03] VITALS: Ht 177.8 cm; Wt 117.9 kg
[~2023-07-03 07:25] MED LIST changes: +BACTRIM DS TAB1 EAC6 PO
[2023-07-03 07:46] VITALS: BP 157/92
[2023-07-03] MEDS ORDERED: GABA100 (09:02)
[2023-07-03] MEDS ORDERED: NEURONTIN PO (09:18)
== END 2023-07-03 09:30 | disposition home or self-care (01) ==
LOC: ER 07:25
DX: E11.40 Type 2 diabetes mellitus with diabetic neuropathy, unspecified (principal); E11.22 Type 2 diabetes mellitus with diabetic chronic kidney disease; I12.9 Hypertensive chronic kidney disease with stage 1 through stage 4 chronic kidney disease, or unspecified chronic kidney disease; N18.9 Chronic kidney disease, unspecified; I25.2 Old myocardial infarction; E78.5 Hyperlipidemia, unspecified; F25.9 Schizoaffective disorder, unspecified; Z87.891 Personal history of nicotine dependence; Z79.82 Long term (current) use of aspirin; Z79.02 Long term (current) use of antithrombotics/antiplatelets; Z79.4 Long term (current) use of insulin; Z79.84 Long term (current) use of oral hypoglycemic drugs; Z79.899 Other long term (current) drug therapy; Z88.5 Allergy status to narcotic agent; Z88.8 Allergy status to other drugs, medicaments and biological substances
CPT/HCPCS: 99283

== ENCOUNTER 2024-03-04 22:33 | Inpatient (IN) | payer OTHER ==
[~2024-03-04] VITALS: Ht 177.8 cm; Wt 119.9 kg
[~2024-03-04 22:33] MED LIST changes: +BASAGLAR K100 UNIT/1 SC; -BASAGLAR K100 UNIT/6 SC; +GABA400 PO; +NEURONTIN PO
[2024-03-04 23:42] LABS: BASOPHILS ABSOLUTE AUTO 0.04 K/mm3 (0.00-0.23); BASOPHILS PERCENT AUTO 1 % (0-2); EOSINOPHILS ABSOLUTE AUTO 0.35 K/mm3 (0.00-0.68); EOSINOPHILS PERCENT AUTO 5 % (0-6); Hematocrit 37.1 % (37.0-53.0); Hemoglobin 11.8 g/dL (13.5-17.5); IMMATURE GRAN ABSOLUTE AUTO 0.03 K/mm3 (0.00-0.10); IMMATURE GRAN PERCENT AUTO 0 % (0-1); LYMPHOCYTES ABSOLUTE AUTO 1.64 K/mm3 (0.84-5.20); LYMPHOCYTES PERCENT AUTO 24 % (21-46); MONOCYTES ABSOLUTE AUTO 0.72 K/mm3 (0.16-1.47); MONOCYTES PERCENT AUTO 10 % (4-13); Mean Corpuscular HGB Conc 31.8 g/dL (31.5-36.5); Mean Corpuscular Volume 82 fL (80-100); Mean Platelet Volume 7.8 fL (9.1-12.4); NEUTROPHILS ABSOLUTE AUTO 4.21 K/mm3 (1.96-9.15); NEUTROPHILS PERCENT AUTO 60 % (41-73); Platelet Count 432 K/mm3 (150-400); RDW Coefficient Variation 14.5 % (11.7-14.2); RDW Standard Deviation 42.6 fL (35.1-46.3); Red Blood Cell Count 4.53 M/mm3 (4.30-5.90); White Blood Cell Count 6.99 K/mm3 (4.00-11.30)
[2024-03-04] MEDS ORDERED: Albuterol 2.5 MG/3 ML VIAL INH SCH (23:45)
[2024-03-05 00:04] LABS: Albumin/Globulin Ratio 0.7 (0.8-1.8); Bilirubin, Total 0.6 mg/dL (0.1-1.0); Bun/Creatinine Ratio 15.5 (12.0-20.0); Calcium, Blood 8.9 mg/dL (8.5-10.1); Creatinine, Blood 1.16 mg/dL (0.60-1.20); Globulin, Blood 4.4 g/dL (2.2-4.0); Potassium, Blood 4.6 mmol/L (3.5-5.5); Total Protein, Blood 7.4 g/dL (6.4-8.2)
[2024-03-05 02:26] LABS: Influenza A, PCR NEGATIVE (NEGATIVE); Influenza B, PCR NEGATIVE (NEGATIVE); Resp Syncytial Virus, PCR NEGATIVE (NEGATIVE); SARS-Cov-2 (COVID-19) PCR, MMC NEGATIVE (NEGATIVE)
[2024-03-05] MEDS ORDERED: CefTRIAXone Sodium 1,000 MG in NS 100 ML IV ONE (04:35)
[2024-03-05] MEDS ORDERED: Azithromycin 500 MG in NS 250 ML IV ONE (04:35)
[2024-03-05] MEDS ORDERED: Acetaminophen 325 MG TABLET PO PRN (05:20)
[2024-03-05] MEDS ORDERED: Ondansetron HCl 2 MG / ML 2ML Vial IV PRN (05:20)
[2024-03-05] MEDS ORDERED: Cefepime HCl 2,000 MG in NS 100 ML IV SCH (06:00)
[2024-03-05] MEDS ORDERED: NS 1,000 ML IV SCH ×2 (06:00)
[2024-03-05 06:09] LABS: Base Excess Venous -1.5 mmol/L; Bicarbonate Venous 23.1 mmol/L (24.0-30.0); PCO2 Venous 39.9 mmHg (38-42); pH Blood Venous 7.38 (7.34-7.37)
[2024-03-05] MEDS ORDERED: Insulin Human Lispro 100 Units/ML 3ML Syringe SC SCH (07:30)
[2024-03-05 08:24] VITALS: BP 132/74
[2024-03-05] MEDS ORDERED: NS 250 ML IV PRN (08:30)
[2024-03-05] MEDS ORDERED: Lactobacil 2-S.Thermo-Bifido 1 1 Cap PO SCH (09:00)
[2024-03-05] MEDS ORDERED: Gabapentin 400 MG Cap PO SCH ×2 (09:00→18:00)
[2024-03-05] MEDS ORDERED: OPTH BOTHEYES SCH (09:00)
[2024-03-05] MEDS ORDERED: Aspirin 81 MG TabEC PO SCH (09:00)
[2024-03-05] MEDS ORDERED: Metoprolol Tartrate 25 MG Tab PO SCH (09:00)
[2024-03-05] MEDS ORDERED: Atorvastatin 40 MG Tab PO SCH (09:00)
[2024-03-05] MEDS ORDERED: Clopidogrel Bisulfate 75 MG Tab PO SCH (09:00)
[2024-03-05] MEDS ORDERED: TIMOLOL 0.5% BOTHEYES SCH (09:00)
[2024-03-05] MEDS ORDERED: Timolol 0.5% Opth Soln 5 ML BOTHEYES SCH (09:00)
[2024-03-05] MEDS ORDERED: Docosahexanoic Acid/EPA 1,000 MG CAP PO SCH (09:00)
[2024-03-05 15:35] VITALS: BP 122/70
--- NOTE | 2024-03-05 17:19 | NUR ---
PT IS AOX4 AND COOPERATIVE OF CARE. PT DENIES NEED FOR PAIN MEDICATION. PT CONTINUES ON 4L CURRENTLY. PT RESTING IN BED AND CAN CALL APPROPRIATELY. NO DISTRESS NOTED WILL CONTINUE TO MONITOR.
[2024-03-05 19:23] VITALS: BP 132/76
[2024-03-05] MEDS ORDERED: Insulin Glargine-Yfgn 100 Unit/mL 3 ML SYR SC SCH (21:00)
[2024-03-05] MEDS ORDERED: Latanoprost 0.005% Opth Soln 2.5 ML BOTHEYES SCH (21:00)
[2024-03-06 02:13] VITALS: BP 127/69
--- NOTE | 2024-03-06 04:09 | NUR ---
SHIFT SUMMARY PATIENT HAD NO ACUTE CHANGES. AXOX 4 AND INDEPENDENT IN ROOM. ON 4L O2 NC. DENIES CHEST PAIN, SOB, AND N/V. VSS/AFEBRILE. PIV INTACT. IV ABX INFUSED. CBG 236. SPOUSE/DAUGHTER CAME IN AT MIDNIGHT REPORTING DID NOT KNOW HE WAS ADMITTED. THOUGHT HE WAS OUT GAMBLING. COOPERATIVE WITH CARE. CALL LIGHT IN REACH. BED IN LOWEST POSITION. WILL CONTINUE TO MONITOR UNTIL DAY SHIFT NURSE ASSUMES CARE.
[2024-03-06 05:24] LABS: BASOPHILS ABSOLUTE AUTO 0.04 K/mm3 (0.00-0.23); BASOPHILS PERCENT AUTO 1 % (0-2); EOSINOPHILS ABSOLUTE AUTO 0.33 K/mm3 (0.00-0.68); EOSINOPHILS PERCENT AUTO 6 % (0-6); Hematocrit 36.2 % (37.0-53.0); Hemoglobin 11.4 g/dL (13.5-17.5); IMMATURE GRAN ABSOLUTE AUTO 0.02 K/mm3 (0.00-0.10); IMMATURE GRAN PERCENT AUTO 0 % (0-1); LYMPHOCYTES ABSOLUTE AUTO 1.12 K/mm3 (0.84-5.20); LYMPHOCYTES PERCENT AUTO 22 % (21-46); MONOCYTES ABSOLUTE AUTO 0.55 K/mm3 (0.16-1.47); MONOCYTES PERCENT AUTO 11 % (4-13); Mean Corpuscular HGB 26.1 pg (26.0-34.0); Mean Corpuscular HGB Conc 31.5 g/dL (31.5-36.5); Mean Corpuscular Volume 83 fL (80-100); Mean Platelet Volume 8.2 fL (9.1-12.4); NEUTROPHILS ABSOLUTE AUTO 3.15 K/mm3 (1.96-9.15); NEUTROPHILS PERCENT AUTO 60 % (41-73); Platelet Count 371 K/mm3 (150-400); RDW Coefficient Variation 14.3 % (11.7-14.2); RDW Standard Deviation 42.7 fL (35.1-46.3); Red Blood Cell Count 4.37 M/mm3 (4.30-5.90); White Blood Cell Count 5.21 K/mm3 (4.00-11.30)
[2024-03-06 06:01] LABS: Albumin, Blood 2.7 g/dL (3.4-5.0); Albumin/Globulin Ratio 0.7 (0.8-1.8); Bilirubin, Total 0.3 mg/dL (0.1-1.0); Calcium, Blood 9.1 mg/dL (8.5-10.1); Globulin, Blood 4.1 g/dL (2.2-4.0); Potassium, Blood 4.5 mmol/L (3.5-5.5); Total Protein, Blood 6.8 g/dL (6.4-8.2)
[2024-03-06 07:44] VITALS: BP 144/76
[2024-03-06] MEDS ORDERED: Azithromycin 500 MG in NS 250 ML IV SCH (09:00)
[2024-03-06] MEDS ORDERED: Enoxaparin 40 MG/0.4 ML SYR SC SCH (09:00)
[2024-03-06 15:06] VITALS: BP 121/67
[2024-03-06] MEDS ORDERED: Furosemide 10 MG / ML 2ML Vial IV ONE (17:00)
[2024-03-06] MEDS ORDERED: AMITRIPTYLINE100 M6 PO (17:07)
[2024-03-06] MEDS ORDERED: GABA400 PO (17:14)
[2024-03-06] MEDS ORDERED: Insulin Glargine-Yfgn 100 Unit/mL 3 ML SYR SC SCH (18:00)
--- NOTE | 2024-03-06 18:24 | NUR ---
PT AOX4 AND COOPERATIVE OF CARE. NO DISTRESS NOTED AND PT IS ABLE TO MAKE NEEDS KNOWN. PT IS NOW ON 3L O2 SATING 90s. PT HAS SAT UP IN CHAIR FOR MEALS CURRENTLY RESTING IN BED. CALLED DR GUTIERREZ ON [address] GUTIERREZ MADE CHANGES TO INSULIN ON EMAR. CALL LIGHT WITHIN REACH WILL CONTINUE TO MONITOR.
[2024-03-06 21:04] VITALS: BP 118/69
--- NOTE | 2024-03-07 04:54 | NUR ---
SHIFT SUMMARY NOC PT A.O X 4. PLEASANT AND COOPERATIVE WITH CARE. VSS. NO ACUTE EVENTS TO REPORT. HS CBG 265 WITH CNI. PT WEANING OFF OF O2 AND HAS BEEN ON RA FOR MAJORITY OF SHIFT WITH SPO2 >92% UPON SPOT CHECKING. PT CAME TO VISIT AND STAYED NIGHT WITH PT. PT EXPECTED TO DISCHARGE HOME TODAY. PT CURRENTLY RESTING WITH BED IN LOWEST POSITION, AND CALL LIGHT WITHIN REACH.
[2024-03-07 05:17] VITALS: BP 134/69
[2024-03-07 06:41] LABS: BASOPHILS ABSOLUTE AUTO 0.06 K/mm3 (0.00-0.23); BASOPHILS PERCENT AUTO 1 % (0-2); EOSINOPHILS ABSOLUTE AUTO 0.36 K/mm3 (0.00-0.68); EOSINOPHILS PERCENT AUTO 6 % (0-6); Hematocrit 35.1 % (37.0-53.0); Hemoglobin 11.1 g/dL (13.5-17.5); IMMATURE GRAN ABSOLUTE AUTO 0.03 K/mm3 (0.00-0.10); IMMATURE GRAN PERCENT AUTO 1 % (0-1); LYMPHOCYTES ABSOLUTE AUTO 1.54 K/mm3 (0.84-5.20); LYMPHOCYTES PERCENT AUTO 27 % (21-46); MONOCYTES ABSOLUTE AUTO 0.64 K/mm3 (0.16-1.47); MONOCYTES PERCENT AUTO 11 % (4-13); Mean Corpuscular HGB 26.2 pg (26.0-34.0); Mean Corpuscular HGB Conc 31.6 g/dL (31.5-36.5); Mean Corpuscular Volume 83 fL (80-100); NEUTROPHILS ABSOLUTE AUTO 3.03 K/mm3 (1.96-9.15); NEUTROPHILS PERCENT AUTO 54 % (41-73); Platelet Count 354 K/mm3 (150-400); RDW Coefficient Variation 14.1 % (11.7-14.2); RDW Standard Deviation 42.5 fL (35.1-46.3); Red Blood Cell Count 4.23 M/mm3 (4.30-5.90); White Blood Cell Count 5.66 K/mm3 (4.00-11.30)
[2024-03-07 07:00] LABS: Bun/Creatinine Ratio 17.8 (12.0-20.0); Creatinine, Blood 1.07 mg/dL (0.60-1.20); Potassium, Blood 4.2 mmol/L (3.5-5.5)
[2024-03-07 07:46] VITALS: BP 120/77
[2024-03-07] MEDS ORDERED: Insulin Glargine-Yfgn 100 Unit/mL 3 ML SYR SC SCH (09:00)
[2024-03-07] MEDS ORDERED: ACET325 PO (12:13)
[2024-03-07] MEDS ORDERED: VISBIOME 112.51 EACH PO (12:15)
[2024-03-07] MEDS ORDERED: HUMALOG KW100 UNIT/1 (12:15)
[2024-03-07] MEDS ORDERED: PROAIR DIGIHAL90 MCG (12:16)
[2024-03-07] MEDS ORDERED: AZIT250 PO (12:17)
[2024-03-07] MEDS ORDERED: CEFP200 PO (12:17)
[2024-03-07] MEDS ORDERED: FLUTICASONE-SA1 EA12 IH (12:18)
--- NOTE | 2024-03-07 17:02 | NUR ---
DISCHARGE SUMMARY PATIENT DISCHARGED HOME THIS SHIFT, DROVE HIMSELF. ASSISTED PATIENT TO HIS CAR AND VERIFIED HOME O2 TANK FUNCTIONING FOR TRANSPORT. IV REMOVED PRIOR WITHOUT COMPLICATION. DISCHARGE PACKET GIVEN AND REVIEWED, VERBALIZED UNDERSTANDING. MEDS FAXED TO
== END 2024-03-07 13:15 | disposition home or self-care (01) | DRG 871 ==
LOC: ER 22:33 → MEDS 03-05 05:12 → ENPENDDIS 03-07 11:35 → MEDS 03-07 13:15
PROVIDERS: Emergency Medicine; Family Medicine; Internal Medicine; ADMIT Internal Medicine
DX: A41.9 Sepsis, unspecified organism (principal); J18.9 Pneumonia, unspecified organism; J96.21 Acute and chronic respiratory failure with hypoxia; E87.21 Acute metabolic acidosis; C78.01 Secondary malignant neoplasm of right lung; C78.02 Secondary malignant neoplasm of left lung; C79.70 Secondary malignant neoplasm of unspecified adrenal gland; D84.821 Immunodeficiency due to drugs; C64.9 Malignant neoplasm of unspecified kidney, except renal pelvis; C77.9 Secondary and unspecified malignant neoplasm of lymph node, unspecified; E78.5 Hyperlipidemia, unspecified; I10 Essential (primary) hypertension; R65.20 Severe sepsis without septic shock; E11.42 Type 2 diabetes mellitus with diabetic polyneuropathy; F25.9 Schizoaffective disorder, unspecified; I25.10 Atherosclerotic heart disease of native coronary artery without angina pectoris; I25.2 Old myocardial infarction; Z88.6 Allergy status to analgesic agent; Z88.8 Allergy status to other drugs, medicaments and biological substances; Z87.442 Personal history of urinary calculi; Z90.89 Acquired absence of other organs; Z95.5 Presence of coronary angioplasty implant and graft; Z99.81 Dependence on supplemental oxygen; Z90.5 Acquired absence of kidney; Z79.02 Long term (current) use of antithrombotics/antiplatelets; Z79.4 Long term (current) use of insulin; Z79.899 Other long term (current) drug therapy
CPT/HCPCS: 0241U; 36415; 71046; 71275; 80048; 80053; 82803; 82947; 83605; 83880; 84145; 84484; 85025; 87040; 94644; 94664; 94760; 94761; 96374-59; 99285-25; A9270; J0456; J0692; J0696; J1650; J1815; J1940; J7030; J7050; Q9967

== ENCOUNTER 2024-04-18 20:16 | Inpatient (IN) | payer OTHER ==
[~2024-04-18] VITALS: Ht 177.8 cm; Wt 127.5 kg
[~2024-04-18 20:16] MED LIST changes: +ACET325 PO; +AMITRIPTYLINE100 M6 PO; +AZIT250 PO; +BASAGLAR K100 UNIT/1; -BASAGLAR K100 UNIT/1 SC; +CEFP200 PO; +FLUTICASONE-SA1 EA12 IH; +FURO40 PO; +HUMALOG KW100 UNIT/1; +PROAIR DIGIHAL90 MCG; +Prednisone10 MG PO; +VISBIOME 112.51 EACH PO
[2024-04-18 20:47] LABS: BASOPHILS ABSOLUTE AUTO 0.03 K/mm3 (0.00-0.23); BASOPHILS PERCENT AUTO 1 % (0-2); EOSINOPHILS ABSOLUTE AUTO 0.13 K/mm3 (0.00-0.68); EOSINOPHILS PERCENT AUTO 2 % (0-6); Hematocrit 33.2 % (37.0-53.0); Hemoglobin 10.5 g/dL (13.5-17.5); IMMATURE GRAN ABSOLUTE AUTO 0.04 K/mm3 (0.00-0.10); IMMATURE GRAN PERCENT AUTO 1 % (0-1); LYMPHOCYTES PERCENT AUTO 33 % (21-46); MONOCYTES ABSOLUTE AUTO 0.55 K/mm3 (0.16-1.47); MONOCYTES PERCENT AUTO 10 % (4-13); Mean Corpuscular HGB 26.1 pg (26.0-34.0); Mean Corpuscular HGB Conc 31.6 g/dL (31.5-36.5); Mean Corpuscular Volume 82 fL (80-100); Mean Platelet Volume 8.2 fL (9.1-12.4); NEUTROPHILS ABSOLUTE AUTO 2.85 K/mm3 (1.96-9.15); NEUTROPHILS PERCENT AUTO 53 % (41-73); Platelet Count 249 K/mm3 (150-400); RDW Coefficient Variation 18.2 % (11.7-14.2); RDW Standard Deviation 54.6 fL (35.1-46.3); Red Blood Cell Count 4.03 M/mm3 (4.30-5.90)
[2024-04-18 21:13] LABS: Albumin, Blood 3.1 g/dL (3.4-5.0); Albumin/Globulin Ratio 0.8 (0.8-1.8); Bilirubin, Total 0.6 mg/dL (0.1-1.0); Bun/Creatinine Ratio 15.7 (12.0-20.0); Calcium, Blood 9.4 mg/dL (8.5-10.1); Creatinine, Blood 1.15 mg/dL (0.60-1.20); Globulin, Blood 3.9 g/dL (2.2-4.0); Potassium, Blood 4.1 mmol/L (3.5-5.5)
[2024-04-18] MEDS ORDERED: Acetaminophen 500 MG Tab PO ONE (22:50)
[2024-04-18] MEDS ORDERED: MethylPREDNISolone Sod Succ 125 MG Vial IV ONE (22:50)
[2024-04-18] MEDS ORDERED: Ipratropium/Albuterol SulF 2.5-0.5MG/3 ML Amp INH ONE (22:50)
[2024-04-19 00:06] LABS: Influenza A, PCR NEGATIVE (NEGATIVE); Influenza B, PCR NEGATIVE (NEGATIVE); Resp Syncytial Virus, PCR NEGATIVE (NEGATIVE); SARS-Cov-2 (COVID-19) PCR, MMC NEGATIVE (NEGATIVE)
[2024-04-19] MEDS ORDERED: Ondansetron HCl 2 MG / ML 2ML Vial IV PRN (01:15)
[2024-04-19] MEDS ORDERED: Ipratropium/Albuterol SulF 2.5-0.5MG/3 ML Amp INH PRN (01:25)
[2024-04-19] MEDS ORDERED: Acetaminophen 325 MG TABLET PO PRN (01:30)
[2024-04-19] MEDS ORDERED: Insulin Glargine-Yfgn 100 Unit/mL 3 ML SYR SC SCH ×3 (02:00→21:00)
[2024-04-19] MEDS ORDERED: Azithromycin 500 MG in NS 250 ML IV SCH (03:00)
[2024-04-19] MEDS ORDERED: CefTRIAXone Sodium 1,000 MG in NS 100 ML IV SCH (04:00)
[2024-04-19 05:37] LABS: Source, Urine Clean Catch
[2024-04-19 05:46] LABS: BASOPHILS ABSOLUTE AUTO 0.02 K/mm3 (0.00-0.23); BASOPHILS PERCENT AUTO 0 % (0-2); EOSINOPHILS ABSOLUTE AUTO 0.02 K/mm3 (0.00-0.68); EOSINOPHILS PERCENT AUTO 0 % (0-6); Hematocrit 34.7 % (37.0-53.0); IMMATURE GRAN ABSOLUTE AUTO 0.04 K/mm3 (0.00-0.10); IMMATURE GRAN PERCENT AUTO 1 % (0-1); LYMPHOCYTES ABSOLUTE AUTO 1.28 K/mm3 (0.84-5.20); LYMPHOCYTES PERCENT AUTO 27 % (21-46); MONOCYTES ABSOLUTE AUTO 0.13 K/mm3 (0.16-1.47); MONOCYTES PERCENT AUTO 3 % (4-13); Mean Corpuscular HGB Conc 31.7 g/dL (31.5-36.5); Mean Corpuscular Volume 85 fL (80-100); Mean Platelet Volume 8.5 fL (9.1-12.4); NEUTROPHILS ABSOLUTE AUTO 3.31 K/mm3 (1.96-9.15); NEUTROPHILS PERCENT AUTO 69 % (41-73); Platelet Count 243 K/mm3 (150-400); RDW Coefficient Variation 18.2 % (11.7-14.2); RDW Standard Deviation 55.7 fL (35.1-46.3); Red Blood Cell Count 4.07 M/mm3 (4.30-5.90)
[2024-04-19 05:52] LABS: Bilirubin, Urine Neg (Neg); Blood, Urine Neg (Neg); Glucose Qualitative, Urine 2+ (Neg); Ketones, Urine Neg (Neg); Leukocyte Esterase, Urine Neg (Neg); Nitrite, Urine Neg (Neg); Protein, Urine 1+ (Neg); Specific Gravity, Urine 1.005 (1.003-1.022); Urobilinogen, Urine NORM (Normal)
[2024-04-19 05:54] LABS: Appearance, Urine Clear (Clear); Color, Urine Yellow (P-Yellow)
[2024-04-19 05:58] LABS: International Normalized Ratio 0.98; Prothrombin Time Results 10.5 Sec (9.7-11.5)
[2024-04-19 06:13] LABS: Albumin/Globulin Ratio 0.7 (0.8-1.8); Bilirubin, Total 0.3 mg/dL (0.1-1.0); Bun/Creatinine Ratio 15.7 (12.0-20.0); Calcium, Blood 9.3 mg/dL (8.5-10.1); Creatinine, Blood 1.02 mg/dL (0.60-1.20); Globulin, Blood 4.1 g/dL (2.2-4.0); Potassium, Blood 4.7 mmol/L (3.5-5.5); Total Protein, Blood 7.1 g/dL (6.4-8.2)
[2024-04-19] MEDS ORDERED: Insulin Human Lispro 100 Units/ML 3ML Syringe SC SCH (07:30)
[2024-04-19] MEDS ORDERED: Furosemide 10 MG / ML 2ML Vial IV SCH (09:00)
[2024-04-19] MEDS ORDERED: Enoxaparin 40 MG/0.4 ML SYR SC SCH (09:00)
[2024-04-19 09:23] VITALS: BP 126/83
[2024-04-19] MEDS ORDERED: PredniSONE 20 MG Tab PO SCH (10:00)
[2024-04-19] MEDS ORDERED: Metolazone 2.5 MG Tab PO SCH (11:00)
[2024-04-19] MEDS ORDERED: Insulin Human Lispro 100 Units/ML 3ML Syringe SC ONE ×2 (12:20→17:05)
[2024-04-19] MEDS ORDERED: Gabapentin 400 MG Cap PO SCH (14:00)
[2024-04-19] MEDS ORDERED: Bumetanide 0.25 MG/ML 4ML ViaL IV SCH (15:00)
[2024-04-19 15:40] VITALS: BP 127/71
--- NOTE | 2024-04-19 18:07 | NUR ---
SHIFT SUMMARY PT ADMITTED FROM THE ED THIS MORNING. PT IS A/OX4 AND PLEASANT AND COOPERATIVE WITH CARE. PT IS ON TELE RUNNING SINUS TACHY. ON 2L NC DUE TO SOB AND DYSPNEA WITH A BASELINE OF RA THROUGHOUT THE DAY AND 2-3L AT NIGHT. PT IS INDEPENDENT IN THE ROOM. STARTED ON BUMEX AND METOLAZONE THIS AFTERNOON, PT STATES SINCE ADMINISTRATION TO HAVE VOIDED 6-7 TIMES. PT IS ALSO ON A 2000ML/DAY FLUID RESTRICTION. THE PT'S BLOOD SUGAR HAS BEEN RUNNING IN THE 300-400S THROUGHOUT THIS SHIFT, PHYSICAN NOTIFIED, CHANGED TO A HIGH SLIDING SCALE, LONG ACTING FROM ONCE A DAY TO BID, AND REGULAR INSULIN BEFORE MEALS AND AT BEDTIME. SPUTUM CULTURE ORDERED, UNABLE TO BE COLLECTED THROUGHOUT THIS SHIFT.
[2024-04-19 19:33] VITALS: BP 121/71
[2024-04-19] MEDS ORDERED: Insulin Regular 100 UNIT/ML 10ML Vial SC SCH (21:00)
[2024-04-19] MEDS ORDERED: Amitriptyline HCl 50 MG Tab PO SCH (21:00)
--- NOTE | 2024-04-19 21:59 | NUR ---
CALLED HOSPITALIST REGARDING PT'S BLOOD SUGAR OF 436. DISCUSSED WITH PT HIS HOME INSULIN REGIMEN WHICH PT DOES NOT HAVE WRITTEN DOWN. 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 PT STATES HE DOES NOT MEDICATE FOR BLOOD SUGAR BETWEEN 70-120 POINTS. RECEIVED ORDER FOR ONE TIME DOSE OF INSULIN GLARGINE 25 UNITS AND TO RECHECK PT'S BLOOD SUGAR AT 0100.
[2024-04-19] MEDS ORDERED: Insulin Glargine-Yfgn 100 Unit/mL 3 ML SYR SC ONE (22:00)
[2024-04-20 02:17] VITALS: BP 111/64
[2024-04-20 04:55] LABS: BASOPHILS ABSOLUTE AUTO 0.01 K/mm3 (0.00-0.23); BASOPHILS PERCENT AUTO 0 % (0-2); EOSINOPHILS ABSOLUTE AUTO 0.06 K/mm3 (0.00-0.68); EOSINOPHILS PERCENT AUTO 2 % (0-6); IMMATURE GRAN ABSOLUTE AUTO 0.01 K/mm3 (0.00-0.10); IMMATURE GRAN PERCENT AUTO 0 % (0-1); LYMPHOCYTES ABSOLUTE AUTO 1.05 K/mm3 (0.84-5.20); LYMPHOCYTES PERCENT AUTO 28 % (21-46); MONOCYTES ABSOLUTE AUTO 0.45 K/mm3 (0.16-1.47); MONOCYTES PERCENT AUTO 12 % (4-13); Mean Corpuscular HGB 26.1 pg (26.0-34.0); Mean Corpuscular HGB Conc 31.3 g/dL (31.5-36.5); Mean Corpuscular Volume 84 fL (80-100); Mean Platelet Volume 8.8 fL (9.1-12.4); NEUTROPHILS PERCENT AUTO 58 % (41-73); Platelet Count 270 K/mm3 (150-400); RDW Coefficient Variation 18.3 % (11.7-14.2); RDW Standard Deviation 54.2 fL (35.1-46.3); Red Blood Cell Count 3.83 M/mm3 (4.30-5.90); White Blood Cell Count 3.78 K/mm3 (4.00-11.30)
[2024-04-20 05:13] LABS: Calcium, Blood 9.8 mg/dL (8.5-10.1); Creatinine, Blood 1.31 mg/dL (0.60-1.20); Potassium, Blood 4.1 mmol/L (3.5-5.5)
--- NOTE | 2024-04-20 05:19 | NUR ---
SHIFT SUMMARY: SHANELLE IS A&OX4. VSS, NO ACUTE EVENTS OVERNIGHT. TELE ST IN THE ONE-HUNDREDS. BLOOD SUGARS TRENDING DOWN SLOWLY. HE IS TOLERATING PO INTAKE WELL, ADHERING TO DIABETIC DIET. HE IS INDEPENDENT IN THE ROOM. IV TO R AC PATENT. MAINTAINING SATS ON 3L VIA NC. HE IS ADHERING TO THE FLUID RESTRICTION, REPORTS GOOD URINARY OUTPUT. HE ALSO REPORTS HE FEELS THAT HIS TOES ARE BECOMING LESS EDEMATOUS. HE IS LYING IN BED WITH THE CALL LIGHT IN REACH. HIS SIGNIFICANT OTHER STATED THAT SHE PLANS TO COME AND VISIT AFTER SHE IS OFF OF WORK AT 9 PM. REQUESTED PT TO DISCUSS HIS INSULIN REGIMEN WITH THE HOSPITALIST TODAY. HE IS LYING IN BED WITH THE CALL LIGHT IN REACH, BED IN LOWEST POSITION. WILL GIVE REPORT TO DAY SHIFT RN.
[2024-04-20 07:20] VITALS: BP 119/75
[2024-04-20] MEDS ORDERED: NS 250 ML IV PRN (08:50)
[2024-04-20] MEDS ORDERED: Aspirin 81 MG Chew PO SCH (09:00)
[2024-04-20] MEDS ORDERED: Clopidogrel Bisulfate 75 MG Tab PO SCH (09:00)
[2024-04-20] MEDS ORDERED: Atorvastatin 40 MG Tab PO SCH (09:00)
[2024-04-20 14:44] VITALS: BP 126/67
--- NOTE | 2024-04-20 17:15 | NUR ---
SHIFT SUMMARY PT DIURESSING WELL TODAY. DIET ORDER UPDATED TO REFLECT 1999 FLUID RESTRICTION. PT CONTINUES TO REQUIRED 3L O2 VIA NC AT THIS TIME. AMBULATING WELL IN ROOM IND. BLOOD SUGARS REMAIN ELEVATED IN THE 200-300S. DR. LYLES NOTIFIED OF THE HIGH BLOOD SUGARS. NO OTHER ACUTE CHANGES IN ASSESSMENT AT THIS TIME. VS REVIEWED. CALL LIGHT IN REACH. DENIES OTHER NEEDS AT THIS TIME.
[2024-04-20] MEDS ORDERED: Bumetanide 0.25 MG/ML 4ML ViaL IV STA (17:44)
[2024-04-20 19:45] VITALS: BP 132/64
[2024-04-20] MEDS ORDERED: Insulin Glargine-Yfgn 100 Unit/mL 3 ML SYR SC SCH (21:00)
[2024-04-21 05:02] LABS: Hematocrit 37.1 % (37.0-53.0); Hemoglobin 11.8 g/dL (13.5-17.5); Mean Corpuscular HGB 26.1 pg (26.0-34.0); Mean Corpuscular HGB Conc 31.8 g/dL (31.5-36.5); Mean Corpuscular Volume 82 fL (80-100); Mean Platelet Volume 8.3 fL (9.1-12.4); Platelet Count 328 K/mm3 (150-400); RDW Coefficient Variation 17.9 % (11.7-14.2); RDW Standard Deviation 53.3 fL (35.1-46.3); Red Blood Cell Count 4.52 M/mm3 (4.30-5.90); White Blood Cell Count 5.61 K/mm3 (4.00-11.30)
[2024-04-21 05:29] LABS: Albumin, Blood 3.2 g/dL (3.4-5.0); Anion Gap 15 mmol/L (3-11); Blood Urea Nitrogen 37 mg/dL (8-24); Bun/Creatinine Ratio 25.7 (12.0-20.0); CO2, Blood 27 mmol/L (21-32); Calcium, Blood 9.9 mg/dL (8.5-10.1); Chloride, Blood 99 mmol/L (98-108); Creatinine, Blood 1.44 mg/dL (0.60-1.20); Glomerular Filtration Rate 57 (60-); Glucose, Blood 189 mg/dL (70-99); Magnesium, Blood 2.3 mg/dL (1.6-2.4); Phosphorus, Blood 5.8 mg/dL (2.5-4.9); Potassium, Blood 3.7 mmol/L (3.5-5.5); Sodium, Blood 137 mmol/L (136-145)
[2024-04-21 05:35] VITALS: BP 133/72
--- NOTE | 2024-04-21 06:14 | NUR ---
SHIFT SUMMARY: SHANELLE IS A&OX4. VSS, NO ACUTE EVENTS OVERNIGHT. MAINTAINING SATS ON 2L VIA NC. PT REQUESTED A TRIAL OFF OF O2, SATS DECREASED TO LOW 80s. O2 REPLACED. KIDNEY FUNCTION TRENDING DOWN. PT HAS CONSISTENTLY BEEN UNDER THE 2000 ML FLUID RESTRICTION. HE IS INDEPENDENT IN THE ROOM, TOLERATING PO INTAKE WELL, AND DENIES ANY DIFFICULTY WITH ELIMINATION. TELE ST @ 105. HE IS LYING IN BED WITH THE CALL LIGHT IN REACH, BED IN LOWEST POSITION. WILL GIVE REPORT TO DAY SHIFT RN.
[2024-04-21 07:24] VITALS: BP 120/70
[2024-04-21] MEDS ORDERED: Bumetanide 0.25 MG/ML 4ML ViaL IV SCH ×2 (08:00→08:55)
[2024-04-21] MEDS ORDERED: Insulin Glargine-Yfgn 100 Unit/mL 3 ML SYR SC SCH ×2 (09:00→21:00)
[2024-04-21 14:40] VITALS: BP 101/64
--- NOTE | 2024-04-21 18:23 | NUR ---
SHIFT SUMMARY: AOX4, VSS NO ACUTE EVENTS. SATS MAINTAINED WITH 2L NC. PT HAPPY WITH NEW DIURETIC AND INSULIN DOSES CONTROLLING THEIR EDEMA AND BLOOD SUGAR. INDEPENDENT IN ROOM AND TOLERATING DIET WELL. LYING IN BED, IN LOWEST POSITON, CALL LIGHT IN REACH, IN PLEASANT AFFECT AND GOOD MOOD.
[2024-04-21 20:04] VITALS: BP 136/73
[2024-04-22 02:43] VITALS: BP 132/79
--- NOTE | 2024-04-22 06:17 | NUR ---
SHIFT SUMMARY: SHANELLE IS A&OX4. VSS, NO ACUTE EVENTS OVERNIGHT. MAINTAINING SATS ON 2-3 L VIA NC OVERNIGHT. PT DID REMOVE HIS O2 IN HIS SLEEP SEVERAL TIMES. PT REPORTS THAT HE SLEEPWALKS AT HOME. INFORMED PT THAT PERIODS OF APNEA AND SNORING RESPIRTAIONS WERE VISUALIZED DURING THE NIGHT. DISCUSSED SLEEP STUDY AND POSSIBLE NEED FOR CPAP/BIPAP. ENCOURAGED PT TO FOLLOWUP WITH HIS PCP. HE IS TOLERATING PO INTAKE WELL, INDEPENDENT IN THE ROOM, IV TO R AC PATENT. PT HAS DENIED THE NEED FOR PAIN MEDICATION THIS SHIFT. HE IS SITTING UP AT THE SIDE OF THE BED WITH THE BED IN THE LOWEST POSITION. WILL GIVE REPORT TO DAY SHIFT RN.
[2024-04-22 07:20] VITALS: BP 115/74
[2024-04-22 09:05] LABS: Albumin, Blood 3.3 g/dL (3.4-5.0); Anion Gap 12 mmol/L (3-11); Blood Urea Nitrogen 40 mg/dL (8-24); CO2, Blood 30 mmol/L (21-32); Calcium, Blood 10.1 mg/dL (8.5-10.1); Chloride, Blood 96 mmol/L (98-108); Creatinine, Blood 1.43 mg/dL (0.60-1.20); Glomerular Filtration Rate 57 (60-); Glucose, Blood 229 mg/dL (70-99); Magnesium, Blood 2.3 mg/dL (1.6-2.4); Potassium, Blood 3.9 mmol/L (3.5-5.5); Sodium, Blood 134 mmol/L (136-145)
[2024-04-22] MEDS ORDERED: BUME2 PO (12:06)
[2024-04-22] MEDS ORDERED: CEFU500T30 PO (12:08)
[2024-04-22] MEDS ORDERED: METO2.5 PO (12:09)
[2024-04-22] MEDS ORDERED: VISBIOME 112.51 EACH PO (12:10)
--- NOTE | 2024-04-22 12:48 | NUR ---
DISCHARGE NOTE: PT DISCHARGED AT 12:40, AOX4 LEAVING WITH WHO PICKED HIM UP IN A CAR AT PATIENT ENTRANCE. ESCORTED OUT VIA WHEELCHAIR. MEDS, EDUCATION, AND FOLLOWUP REVIEWED WITH PATIENT IV REMOVED. MEDICATIONS FAXED TO [facility] ON [facility]. PATIENT TALKING IN GOOD MOOD AND AFFECT. SELF AMBULATED OUT OF WHEELCHAIR INTO CAR INDEPENDENTLY.
--- NOTE | 2024-04-22 14:19 | NUR ---
THIS WRITTER HAS REVIEWED AND AGREES WITH ALL ASSESSMENTS BY MECHE WOODRUFF.
== END 2024-04-22 14:00 | disposition home or self-care (01) | DRG 871 ==
LOC: ER 20:16 → ERHOLD 04-19 01:14 → MEDS 04-19 09:17 → ENPENDDIS 04-22 11:10 → MEDS 04-22 14:00
PROVIDERS: Emergency Medicine; Internal Medicine; Physician Assistant; ADMIT Internal Medicine
DX: A41.9 Sepsis, unspecified organism (principal); I50.33 Acute on chronic diastolic (congestive) heart failure; J96.21 Acute and chronic respiratory failure with hypoxia; J44.1 Chronic obstructive pulmonary disease with (acute) exacerbation; J44.0 Chronic obstructive pulmonary disease with (acute) lower respiratory infection; C78.01 Secondary malignant neoplasm of right lung; C78.02 Secondary malignant neoplasm of left lung; C79.70 Secondary malignant neoplasm of unspecified adrenal gland; E78.00 Pure hypercholesterolemia, unspecified; F25.9 Schizoaffective disorder, unspecified; I11.0 Hypertensive heart disease with heart failure; E11.65 Type 2 diabetes mellitus with hyperglycemia; E11.42 Type 2 diabetes mellitus with diabetic polyneuropathy; E66.9 Obesity, unspecified; Z68.37 Body mass index [BMI] 37.0-37.9, adult; Z88.6 Allergy status to analgesic agent; I25.2 Old myocardial infarction; Z87.442 Personal history of urinary calculi; Z90.5 Acquired absence of kidney; Z95.5 Presence of coronary angioplasty implant and graft; Z90.89 Acquired absence of other organs; Z87.891 Personal history of nicotine dependence; Z79.02 Long term (current) use of antithrombotics/antiplatelets; Z79.899 Other long term (current) drug therapy
CPT/HCPCS: 0241U; 36415; 71046; 71260; 80048; 80053; 80069; 82947; 83605; 83615; 83735; 83880; 84145; 85025; 85027; 85610; 87040; 87070; 87205; 93005; 93010; 94640; 94660; 94664; 94760; 96374-59; 99285-25; A9270; J0456; J0696; J1650; J1815; J2919; J7050; Q9967

== ENCOUNTER → 2024-05-20 | Outpatient (CLI) | payer OTHER ==
[~2024-05-20] MED LIST changes: +BUME2 PO; +CEFU500T30 PO; +METO2.5 PO
[2024-05-21 19:09] LABS: Creatinine Urine 38.3 mg/dL (27.00-270.00); Protein, Urine Quantitative 10.1 mg/dL (0.0-11.9)
== END ==
LOC: LAB SHORT 18:00 → LAB 18:00 → LAB FUT 05-13 15:50
PROVIDERS: Internal Medicine Nephrology
DX: N18.30 Chronic kidney disease, stage 3 unspecified (principal); D63.1 Anemia in chronic kidney disease; N25.81 Secondary hyperparathyroidism of renal origin; E55.9 Vitamin D deficiency, unspecified; E29.1 Testicular hypofunction; R76.9 Abnormal immunological finding in serum, unspecified; R94.5 Abnormal results of liver function studies; R94.6 Abnormal results of thyroid function studies; D51.8 Other vitamin B12 deficiency anemias; D52.8 Other folate deficiency anemias; D50.9 Iron deficiency anemia, unspecified
CPT/HCPCS: 81050; 82043; 82570; 84156

== ENCOUNTER 2024-07-18 07:16 | Observation (INO) | payer OTHER ==
[~2024-07-18] VITALS: Ht 177.8 cm; Wt 126.5 kg
[2024-07-18 08:08] LABS: Mean Corpuscular HGB 25.8 pg (26.0-34.0)
[2024-07-18 08:17] LABS: Albumin, Blood 3.4 g/dL (3.4-5.0); Albumin/Globulin Ratio 0.9 (0.8-1.8); BASOPHILS ABSOLUTE AUTO 0.05 K/mm3 (0.00-0.23); BASOPHILS PERCENT AUTO 1 % (0-2); Bilirubin, Total 0.3 mg/dL (0.1-1.0); Bun/Creatinine Ratio 17.1 (12.0-20.0); Calcium, Blood 8.9 mg/dL (8.5-10.1); Creatinine, Blood 1.11 mg/dL (0.60-1.20); EOSINOPHILS ABSOLUTE AUTO 0.14 K/mm3 (0.00-0.68); EOSINOPHILS PERCENT AUTO 3 % (0-6); Globulin, Blood 3.7 g/dL (2.2-4.0); Hematocrit 38.8 % (37.0-53.0); Hemoglobin 12.4 g/dL (13.5-17.5); IMMATURE GRAN ABSOLUTE AUTO 0.02 K/mm3 (0.00-0.10); IMMATURE GRAN PERCENT AUTO 0 % (0-1); LYMPHOCYTES ABSOLUTE AUTO 1.73 K/mm3 (0.84-5.20); LYMPHOCYTES PERCENT AUTO 37 % (21-46); MONOCYTES ABSOLUTE AUTO 0.53 K/mm3 (0.16-1.47); MONOCYTES PERCENT AUTO 12 % (4-13); Mean Corpuscular Volume 81 fL (80-100); NEUTROPHILS ABSOLUTE AUTO 2.15 K/mm3 (1.96-9.15); NEUTROPHILS PERCENT AUTO 47 % (41-73); Potassium, Blood 4.1 mmol/L (3.5-5.5); RDW Standard Deviation 40.9 fL (35.1-46.3); Total Protein, Blood 7.1 g/dL (6.4-8.2); White Blood Cell Count 4.62 K/mm3 (4.00-11.30)
[2024-07-18 08:30] LABS: Mean Platelet Volume 8.5 fL (9.1-12.4); Platelet Count 282 K/mm3 (150-400)
[2024-07-18] MEDS ORDERED: Bumetanide 0.25 MG/ML 10ML Vial IV ONE (08:30)
[2024-07-18] MEDS ORDERED: FUROSEMIDE40 MG PO (08:43)
[2024-07-18] MEDS ORDERED: K-TAB ER20 MEQ PO (08:44)
[2024-07-18] MEDS ORDERED: Magnesium Hydroxide Conc 10 ML UDC PO PRN (11:00)
[2024-07-18] MEDS ORDERED: Ondansetron HCl 2 MG / ML 2ML Vial IV PRN (11:00)
[2024-07-18] MEDS ORDERED: FLU VACC TS2024-25(6MOS UP)/PF 45 MCG/0.5 ML SYRINGE IM SCH (11:00)
[2024-07-18] MEDS ORDERED: HydrALAZINE HCl 20 MG / ML 1ML Vial IV PRN (11:55)
[2024-07-18] MEDS ORDERED: Acetaminophen 325 MG TABLET PO PRN (12:00)
[2024-07-18] MEDS ORDERED: Gabapentin 400 MG Cap PO SCH (14:00)
[2024-07-18 15:15] VITALS: BP 140/76
[2024-07-18] MEDS ORDERED: GABA400 PO (15:39)
[2024-07-18] MEDS ORDERED: METO25 PO (15:41)
[2024-07-18] MEDS ORDERED: METO25ER PO (15:43)
[2024-07-18] MEDS ORDERED: Albuterol HFA200 ACT/6.7 GM INH INH PRN (15:50)
[2024-07-18] MEDS ORDERED: Mometasone/Formoterol MDI 200/5 mcg 13 GM INH SCH (15:50)
[2024-07-18] MEDS ORDERED: Insulin Human Lispro 100 Units/ML 3ML Syringe SC SCH (16:30)
[2024-07-18] MEDS ORDERED: Metolazone 2.5 MG Tab PO SCH (18:00)
[2024-07-18] MEDS ORDERED: Bumetanide 0.25 MG/ML 4ML ViaL IV SCH ×2 (18:00)
[2024-07-18 18:15] VITALS: BP 144/80
[2024-07-18 19:48] VITALS: BP 145/83
--- NOTE | 2024-07-18 20:13 | NUR ---
SHIFT SUMMARY- PT ADMITTED FOR FLUID OVERLOAD. IV BUMEX AND METOLAZONE GIVEN SBP 144 AT THE TIME OF MED ADMINISTRATION. ADMISSION COMPLETED. PT IN BED AT THE TIME OF BEDSIDE REPORT, SLEEPING. HE WOKE TO STAFF VOICES BUT APPEARED TO BE GROGGY. NO CURRENT S&S OF DISTRESS NOTED.
[2024-07-18] MEDS ORDERED: Amitriptyline HCl 50 MG Tab PO SCH (21:00)
[2024-07-18] MEDS ORDERED: Timolol 0.5% Opth Soln 5 ML BOTHEYES SCH (21:00)
[2024-07-18] MEDS ORDERED: Latanoprost 0.005% Opth Soln 2.5 ML BOTHEYES SCH (21:00)
[2024-07-18] MEDS ORDERED: Insulin Glargine-Yfgn 100 Unit/mL 3 ML SYR SC SCH (21:00)
[2024-07-19 03:23] VITALS: BP 115/58
--- NOTE | 2024-07-19 03:26 | NUR ---
SHIFT SUMMARY PT ALERT ORIENTED CALLS APPROPRIATELY. NO C/O SOB CHEST PAIN OR PRESSURE. VSS ON RA SATTING AT 97%. HE REMAINS ON BUMEX AND METOLAZONE FOR HIS CHF AND FLUID OVERLOAD. HES BEEN USING THE URINAL. HES BEEN SLEEPING MOST OF THIS SHIFT BUT HIS DID COME IN AND HE WAS AWAKE TALKING WITH HER. REMAINS WITH EDEMA TO BLE. REMAINS ON TELEMETRY AT NSR AT A RATE OF 94. SLEEPING IN BED AT THIS TIME WITH CALL LIGHT IN REACH
[2024-07-19 06:35] LABS: Bun/Creatinine Ratio 17.5 (12.0-20.0); Calcium, Blood 9.7 mg/dL (8.5-10.1); Creatinine, Blood 1.14 mg/dL (0.60-1.20); Potassium, Blood 3.9 mmol/L (3.5-5.5)
[2024-07-19 07:14] VITALS: BP 121/76
[2024-07-19] MEDS ORDERED: Potassium Chloride 20 MEQ TabCR PO SCH (09:00)
[2024-07-19] MEDS ORDERED: Clopidogrel Bisulfate 75 MG Tab PO SCH (09:00)
[2024-07-19] MEDS ORDERED: Enoxaparin 40 MG/0.4 ML SYR SC SCH (09:00)
[2024-07-19] MEDS ORDERED: Atorvastatin 40 MG Tab PO SCH (09:00)
[2024-07-19] MEDS ORDERED: Aspirin 81 MG TabEC PO SCH (09:00)
[2024-07-19] MEDS ORDERED: Heparin Sodium,Porcine 5,000 UNIT/0.5 ML SDV SC SCH (09:35)
[2024-07-19] MEDS ORDERED: Bumetanide 1 MG Tab PO SCH (10:00)
[2024-07-19] MEDS ORDERED: BUME2 PO (10:24)
[2024-07-19] MEDS ORDERED: DULERA 100 MCG/13 GM INH (10:26)
--- NOTE | 2024-07-19 15:28 | NUR ---
DISCHARGE NOTE- PT WAS GIVEN VERBAL AND WRITTEN DISCHARGE INSTRUCTIONS AND ACKNOWLEDGED UNDERSTANDING OF THEM. IV AND TELE DC'D AT THE TIME OF DISCHARGE, PT ESCORTED OUT VIA WC BY THE PROGRAM ADVISOR. NO S&S OF DISTRESS AT THE TIME OF DISCHARGE.
== END 2024-07-19 11:14 | disposition home or self-care (01) ==
LOC: ER 07:16 → ERHOLD 07:17 → MEDS 15:13
PROVIDERS: Emergency Medicine; ADMIT Internal Medicine
DX: I11.0 Hypertensive heart disease with heart failure (principal); I50.33 Acute on chronic diastolic (congestive) heart failure; J96.21 Acute and chronic respiratory failure with hypoxia; C64.9 Malignant neoplasm of unspecified kidney, except renal pelvis; I25.10 Atherosclerotic heart disease of native coronary artery without angina pectoris; I25.2 Old myocardial infarction; E78.5 Hyperlipidemia, unspecified; E11.40 Type 2 diabetes mellitus with diabetic neuropathy, unspecified; Z87.891 Personal history of nicotine dependence; Z88.5 Allergy status to narcotic agent; Z79.82 Long term (current) use of aspirin; Z79.899 Other long term (current) drug therapy
CPT/HCPCS: 36415; 71045; 80048; 80053; 82947; 83880; 84484; 85025; 93005; 93010; 94640; 94664; 94760; 96374; 96376; 99285-25; A9270; G0378; J1815

== ENCOUNTER → 2025-04-05 | Outpatient (CLI) | payer OTHER ==
[~2025-04-05] MED LIST changes: +AMOCLA875 PO; +FUROSEMIDE40 MG PO; +K-TAB ER20 MEQ PO; +METO25ER PO; +ORAL ANESTHETIC9 GM MM
[2025-04-09 07:19] LABS: CORTISOL,U FREE - RATIO TO CRT 3.16 ug/g CRT; CORTISOL,URINE FREE - PER 24H 3.7 ug/d (<=60.0); CORTISOL,URN FREE - PER VOLUME 1.93 ug/L; CREATININE,URINE - PER 24H 1159 mg/d (800-2100); CREATININE,URINE - PER VOLUME 61 mg/dL; HOURS COLLECTED 24 hr
== END | disposition home or self-care (01) ==
LOC: LAB SHORT 07:00 → LAB 07:00
PROVIDERS: Internal Medicine Nephrology
DX: N18.30 Chronic kidney disease, stage 3 unspecified (principal); D63.1 Anemia in chronic kidney disease; N25.81 Secondary hyperparathyroidism of renal origin; E55.9 Vitamin D deficiency, unspecified; E78.00 Pure hypercholesterolemia, unspecified; R76.9 Abnormal immunological finding in serum, unspecified; R94.5 Abnormal results of liver function studies; R94.6 Abnormal results of thyroid function studies
CPT/HCPCS: 81050; 82530

== ENCOUNTER 2025-04-06 17:42 | Emergency (ER) | payer OTHER ==
[~2025-04-06] VITALS: Ht 177.8 cm; Wt 122.5 kg
[~2025-04-06 17:42] MED LIST changes: -AMOCLA875 PO; -ORAL ANESTHETIC9 GM MM
[2025-04-06 19:11] LABS: BASOPHILS ABSOLUTE AUTO 0.03 K/mm3 (0.00-0.23); BASOPHILS PERCENT AUTO 1 % (0-2); EOSINOPHILS ABSOLUTE AUTO 0.11 K/mm3 (0.00-0.68); EOSINOPHILS PERCENT AUTO 2 % (0-6); Hematocrit 50.4 % (37.0-53.0); Hemoglobin 16.9 g/dL (13.5-17.5); IMMATURE GRAN ABSOLUTE AUTO 0.02 K/mm3 (0.00-0.10); IMMATURE GRAN PERCENT AUTO 0 % (0-1); LYMPHOCYTES ABSOLUTE AUTO 2.53 K/mm3 (0.84-5.20); LYMPHOCYTES PERCENT AUTO 38 % (21-46); MONOCYTES ABSOLUTE AUTO 0.70 K/mm3 (0.16-1.47); MONOCYTES PERCENT AUTO 11 % (4-13); Mean Corpuscular HGB Conc 33.5 g/dL (31.5-36.5); Mean Corpuscular Volume 82 fL (80-100); NEUTROPHILS ABSOLUTE AUTO 3.22 K/mm3 (1.96-9.15); NEUTROPHILS PERCENT AUTO 49 % (41-73); NRBC ABSOLUTE 0.00 K/mm3 (0.00-0.02); NRBC Auto 0.0 /100 WBC (0.0-0.2); Platelet Count 245 K/mm3 (150-400); RDW Coefficient Variation 15.4 % (11.7-14.2); RDW Standard Deviation 43.5 fL (35.1-46.3)
[2025-04-06 19:50] LABS: Alanine Aminotransfer (ALT/SGP 54.0 U/L (12-78); Albumin, Blood 3.8 g/dL (3.4-5.0); Albumin/Globulin Ratio 0.9 (0.8-1.8); Anion Gap 9.0 mmol/L (3-11); Aspartate Aminotrans (AST/SGOT 39.0 U/L (12-37); Bilirubin, Total 0.8 mg/dL (0.1-1.0); Blood Urea Nitrogen 23.0 mg/dL (8-24); CO2, Blood 28.0 mmol/L (21-32); Calcium, Blood 9.2 mg/dL (8.5-10.1); Chloride, Blood 102.0 mmol/L (98-108); Creatinine, Blood 1.4 mg/dL (0.60-1.20); Globulin, Blood 4.3 g/dL (2.2-4.0); Glucose, Blood 93.0 mg/dL (70-99); Potassium, Blood 4.0 mmol/L (3.5-5.5); Sodium, Blood 135.0 mmol/L (136-145); Total Protein, Blood 8.1 g/dL (6.4-8.2)
[2025-04-06] MEDS ORDERED: Lidocaine 2% Viscous Soln 15 ML UDC PO ONE (21:20)
[2025-04-06] MEDS ORDERED: AMOCLA875 PO (21:21)
[2025-04-06] MEDS ORDERED: ORAL ANESTHETIC9 GM MM (21:27)
[2025-04-06 21:40] VITALS: BP 132/80
== END 2025-04-06 21:45 | disposition home or self-care (01) ==
LOC: ER 17:42
PROVIDERS: Physician Assistant
DX: K13.79 Other lesions of oral mucosa (principal); T45.1X5A Adverse effect of antineoplastic and immunosuppressive drugs, initial encounter; E11.9 Type 2 diabetes mellitus without complications; E78.00 Pure hypercholesterolemia, unspecified; Z79.899 Other long term (current) drug therapy; Z79.82 Long term (current) use of aspirin; Z79.02 Long term (current) use of antithrombotics/antiplatelets; Z88.1 Allergy status to other antibiotic agents; Z88.5 Allergy status to narcotic agent
CPT/HCPCS: 80053; 85025; 99282; A9270

== ENCOUNTER 2025-04-15 12:59 | Emergency (ER) | payer OTHER ==
[~2025-04-15] VITALS: Ht 177.8 cm; Wt 122.5 kg
[~2025-04-15 12:59] MED LIST changes: +AMOCLA875 PO; +ORAL ANESTHETIC9 GM MM
[2025-04-15 13:15] VITALS: BP 116/76
[2025-04-15] MEDS ORDERED: TOUJEO MAX300 UNIT/2 SC (16:05)
== END 2025-04-15 14:30 ==
LOC: ER 12:59
DX: E11.21 Type 2 diabetes mellitus with diabetic nephropathy (principal); Z76.0 Encounter for issue of repeat prescription; Z88.8 Allergy status to other drugs, medicaments and biological substances; Z88.5 Allergy status to narcotic agent; Z79.82 Long term (current) use of aspirin; Z79.899 Other long term (current) drug therapy; Z79.4 Long term (current) use of insulin; E78.5 Hyperlipidemia, unspecified; Z87.442 Personal history of urinary calculi; Z87.891 Personal history of nicotine dependence
CPT/HCPCS: 99281

== ENCOUNTER 2025-08-04 00:48 | Emergency (ER) | payer OTHER ==
[~2025-08-04] VITALS: Ht 177.8 cm; Wt 129.3 kg
[~2025-08-04 00:48] MED LIST changes: +TOUJEO MAX300 UNIT/2 SC
[2025-08-04 01:00] VITALS: BP 124/72
[2025-08-04] MEDS ORDERED: RX Prepack 6 Tabs Oxycodone 5mg UD ONE (01:30)
[2025-08-04] MEDS ORDERED: AMOCLA875 PO (01:30)
== END 2025-08-04 02:08 | disposition home or self-care (01) ==
LOC: ER 00:48
DX: K13.79 Other lesions of oral mucosa (principal); E78.00 Pure hypercholesterolemia, unspecified; E11.9 Type 2 diabetes mellitus without complications; Z88.5 Allergy status to narcotic agent; Z88.1 Allergy status to other antibiotic agents; Z79.02 Long term (current) use of antithrombotics/antiplatelets; Z79.899 Other long term (current) drug therapy; Z79.82 Long term (current) use of aspirin; Z79.4 Long term (current) use of insulin
CPT/HCPCS: 99282; A9270